=== PATIENT | male | born 1975 | race Caucasian/White ===

== ENCOUNTER → 2016-08-23 | Outpatient (CLI) | payer BC ==
--- NOTE | 2016-08-23 10:49 | Diagnostic Imaging Report ---
INDICATION: Abdominal pain. KUB 10:12 AM. Bowel gas pattern is normal. There is a 3-mm small round calcification in the left lower pelvis which is likely a phlebolith, but a distal ureteral calculus cannot be excluded. There are no calculi seen in the kidneys or proximal ureters. IMPRESSION: Small calcification in the pelvis probably phlebolith but a distal ureteral calculus cannot be excluded. Clinical correlation recommended. Dictated by: Dictated on workstation # [id number]
== END ==
LOC: RAD 09:45
PROVIDERS: ATTEND Urology
DX: R93.5 Abnormal findings on diagnostic imaging of other abdominal regions, including retroperitoneum (principal); Z87.442 Personal history of urinary calculi
CPT/HCPCS: 74000

== ENCOUNTER 2018-08-24 16:59 | Emergency (ER) | payer BC ==
[~2018-08-24] VITALS: Ht 172.7 cm; Wt 99.8 kg
[2018-08-24 17:54] LABS: BILIRUBIN,URINE NEGATIVE (NEGATIVE); CLARITY,URINE CLEAR; COLOR,URINE AMBER; GLUCOSE, URINE (UA) NEGATIVE (NEGATIVE); KETONES,URINE 1+ (NEGATIVE); LEUKOCYTE ESTERASE ,URINE 1+ (NEGATIVE); NITRITE,URINE NEGATIVE (NEGATIVE); PH,URINE 5 (5-9); PROTEIN,URINE 1+ (NEGATIVE); UROBILINOGEN,URINE 1 MG/DL (NORMAL)
[2018-08-24 18:02] LABS: BASOPHILS % (AUTO) 0 % (0-10); EOSINOPHILS # (AUTO) 0.3 10^3/uL (0.0-0.3); EOSINOPHILS % (AUTO) 3 % (0-10); HEMATOCRIT 46 % (40-54); HEMOGLOBIN 16.3 G/DL (13.3-17.7); LYMPHOCYTES # (AUTO) 2.3 X 10^3 (1.0-4.0); LYMPHOCYTES % (AUTO) 19 % (12-44); MEAN CORPUSCULAR HEMOGLOBIN 33 PG (25-34); MEAN CORPUSCULAR HGB CONC 35 G/DL (32-36); MEAN CORPUSCULAR VOLUME 92 FL (80-99); MEAN PLATELET VOLUME 9.7 FL (7.4-10.4); MONOCYTES # (AUTO) 1.2 X 10^3 (0.0-1.0); MONOCYTES % (AUTO) 10 % (0-12); NEUTROPHILS # (AUTO) 8.2 X 10^3 (1.8-7.8); NEUTROPHILS % (AUTO) 68 % (42-75); PLATELET COUNT 238 10^3/uL (130-400); RED CELL DISTRIBUTION WIDTH 12.7 % (10.0-14.5); WHITE BLOOD COUNT 12.1 10^3/uL (4.3-11.0)
[2018-08-24] MEDS ORDERED: LACTATED RINGERS 1,000 ML IV ONE (18:07)
[2018-08-24 18:10] LABS: BACTERIA,URINE NEGATIVE /HPF; SQUAMOUS EPITHELIAL CELL,UR RARE /HPF; WBC,URINE 0-2 /HPF
[2018-08-24 18:26] LABS: ALBUMIN 4.3 GM/DL (3.2-4.5); BILIRUBIN,TOTAL 0.7 MG/DL (0.1-1.0); CALCIUM 10.5 MG/DL (8.5-10.1); CREATININE SERUM 1.38 MG/DL (0.60-1.30); POTASSIUM 4.4 MMOL/L (3.6-5.0); TOTAL PROTEIN 7.7 GM/DL (6.4-8.2)
[2018-08-24 18:33] LABS: AMPHETAMINE SCREEN, URINE POSITIVE (NEGATIVE); BENZODIAZEPINES SCREEN URINE POSITIVE (NEGATIVE); COCAINE SCREEN URINE NEGATIVE (NEGATIVE); METHAMPHETAMINE SCREEN URINE S NEGATIVE (NEGATIVE)
[2018-08-24 18:34] LABS: BARBITURATE SCREEN URINE NEGATIVE (NEGATIVE); CANNABINOID SCREEN, URINE POSITIVE (NEGATIVE); METHADONE STAT NEGATIVE (NEGATIVE); OPIATE SCREEN URINE POSITIVE (NEGATIVE); OXYCODONE STAT NEGATIVE (NEGATIVE); PROPOXYPHENE STAT NEGATIVE (NEGATIVE); TRICYCLIC ANTIDEPRESSANTS SCRE NEGATIVE (NEGATIVE)
--- NOTE | 2018-08-24 18:35 | Diagnostic Imaging Report ---
INDICATION: Abdominal pain. COMPARISON: 08/23/2016. FINDINGS: Acute abdominal series demonstrates nondistended bowel gas pattern. There is a stable calcification deep within the left pelvis, likely phlebolith. There is no free air. No significant constipation is seen. The chest is normal. Osseous structures are age appropriate. IMPRESSION: Negative acute abdominal series. Dictated by: Dictated on workstation # [id number]
[2018-08-24 18:49] LABS: AMYLASE 60 U/L (25-125); LIPASE 40 U/L (8-78)
--- NOTE | 2018-08-24 18:55 | Diagnostic Imaging Report ---
PROCEDURE: CT urinary tract, rule out kidney stone. TECHNIQUE: Multiple contiguous axial images were obtained through the abdomen and pelvis without the use of intravenous contrast. Auto Exposure Controls were utilized during the CT exam to meet ALARA standards for radiation dose reduction. INDICATION: Dysuria, abdominal pain. COMPARISON: None. FINDINGS: The lung bases are clear. The gallbladder is contracted likely from a nonfasting state. There are no obvious gallstones. The liver, spleen, pancreas, and adrenal glands are grossly unremarkable. There are 1-2 mm nonobstructive stones in both kidneys; however, there is no hydronephrosis or hydroureter. There is a phlebolith deep within the pelvis on the left. Distal ureters and urinary bladder are grossly unremarkable. Course and caliber of the small bowel is normal. There are acute diverticula of the mid sigmoid colon. There is some slight inflammatory change in the mesenteric fat. This could represent an early diverticulitis. There is no free air, free fluid, or abscess. The appendix is normal. There is no hernia. Osseous structures are age appropriate. IMPRESSION: 1. Nonobstructive renal calculi bilaterally. No hydronephrosis or hydroureter identified. 2. Suspect subtle focal diverticulitis of the sigmoid colon without abscess, free air, or free fluid. Follow-up recommended. Dictated by: Dictated on workstation # [id number]
[2018-08-24] MEDS ORDERED: KETOROLAC 30 MG/ML VIAL IVP STA (18:58)
--- NOTE | 2018-08-24 19:00 | ED Abdominal Pain ---
General Chief Complaint: Abdominal/GI Problems Stated Complaint: ABD PAIN Nursing Triage Note: PT AMB TO TRIAGE WITH COMPLAINT OF ABD PAIN. STATES STARTED TWO WEEKS AGO BUT WORSENED FRIDAY NIGHT. STATES HE IS HAVING DIFFICULTY URINATING. Sepsis Screen: No Definite Risk Allergies and Home Medications Allergies Coded Allergies: No Known Drug Allergies (Unverified , 08/24/18) Past Ojkiwpo-Xobaec-Vewjal Hx Patient Social History Alcohol Use: Occasionally Uses Recreational Drug Use: No Smoking Status: Never a Smoker Recent Foreign Travel: No Contact w/Someone Who Travel: No Recent Infectious Disease Expo: No Recent Hopitalizations: No Immunizations Up To Date Tetanus Booster (TDap): Unknown PED Vaccines UTD: Yes Seasonal Allergies Seasonal Allergies: No Past Medical History Surgeries: Yes Respiratory: No Cardiac: No Neurological: No Genitourinary: No Gastrointestinal: No Musculoskeletal: Yes (CHRONIC INJURIES) Endocrine: No HEENT: No Cancer: No Psychosocial: No Integumentary: No Physical Exam Vital Signs Vital Signs - First Documented 08/24/18 17:08 Temp 99.5 Pulse 106 Resp 20 B/P (MAP) 145/94 (111) Pulse Ox 98 O2 Delivery Room Air Capillary Refill : Less Than 3 Seconds Height/Weight/BMI Height: 5'8.00" Weight: 220lbs. oz. 99.446572ez; BMI Method:Stated Progress/Results/Core Measures Results/Orders Lab Results Laboratory Tests Test 08/24/18 17:45 08/24/18 17:50 Range/Units Urine Color JASON H Urine Clarity CLEAR Urine pH 5 5-9 Urine Specific [place] 1.015 L 1.016-1.022 Urine Protein 1+ H NEGATIVE Urine Glucose (UA) NEGATIVE NEGATIVE Urine Ketones 1+ H NEGATIVE Urine Nitrite NEGATIVE NEGATIVE Urine Bilirubin NEGATIVE NEGATIVE Urine Urobilinogen 1 NORMAL MG/DL Urine Leukocyte Esterase 1+ H NEGATIVE Urine RBC (Auto) NEGATIVE NEGATIVE Urine RBC NONE /HPF Urine WBC 0-2 /HPF Urine Squamous Epithelial Cells RARE /HPF Urine Crystals NONE /LPF Urine Bacteria NEGATIVE /HPF Urine Casts NONE /LPF Urine Mucus SMALL H /LPF Urine Culture Indicated NO Urine Opiates Screen POSITIVE H NEGATIVE Urine Oxycodone Screen NEGATIVE NEGATIVE Urine Methadone Screen NEGATIVE NEGATIVE Urine Propoxyphene Screen NEGATIVE NEGATIVE Urine Barbiturates Screen NEGATIVE NEGATIVE Ur Tricyclic Antidepressants Screen NEGATIVE NEGATIVE Urine Phencyclidine Screen NEGATIVE NEGATIVE Urine Amphetamines Screen POSITIVE H NEGATIVE Urine Methamphetamines Screen NEGATIVE NEGATIVE Urine Benzodiazepines Screen POSITIVE H NEGATIVE Urine Cocaine Screen NEGATIVE NEGATIVE Urine Cannabinoids Screen POSITIVE H NEGATIVE White Blood Count 12.1 H 4.3-11.0 10^3/uL Red Blood Count 5.01 4.35-5.85 10^6/uL Hemoglobin 16.3 13.3-17.7 G/DL Hematocrit 46 40-54 % Mean Corpuscular Volume 92 80-99 FL Mean Corpuscular Hemoglobin 33 25-34 PG Mean Corpuscular Hemoglobin Concent 35 32-36 G/DL Red Cell Distribution Width 12.7 10.0-14.5 % Platelet Count 238 130-400 10^3/uL Mean Platelet Volume 9.7 7.4-10.4 FL Neutrophils (%) (Auto) 68 42-75 % Lymphocytes (%) (Auto) 19 12-44 % Monocytes (%) (Auto) 10 0-12 % Eosinophils (%) (Auto) 3 0-10 % Basophils (%) (Auto) 0 0-10 % Neutrophils # (Auto) 8.2 H 1.8-7.8 X 10^3 Lymphocytes # (Auto) 2.3 1.0-4.0 X 10^3 Monocytes # (Auto) 1.2 H 0.0-1.0 X 10^3 Eosinophils # (Auto) 0.3 0.0-0.3 10^3/uL Basophils # (Auto) 0.0 0.0-0.1 10^3/uL Sodium Level 138 135-145 MMOL/L Potassium Level 4.4 3.6-5.0 MMOL/L Chloride Level 101 98-107 MMOL/L Carbon Dioxide Level 29 21-32 MMOL/L Anion Gap 8 5-14 MMOL/L Blood Urea Nitrogen 11 7-18 MG/DL Creatinine 1.38 H 0.60-1.30 MG/DL Estimat Glomerular Filtration Rate 57 BUN/Creatinine Ratio 8 Glucose Level 80 70-105 MG/DL Calcium Level 10.5 H 8.5-10.1 MG/DL Corrected Calcium 10.3 H 8.5-10.1 MG/DL Total Bilirubin 0.7 0.1-1.0 MG/DL Aspartate Amino Transf (AST/SGOT) 23 5-34 U/L Alanine Aminotransferase (ALT/SGPT) 38 0-55 U/L Alkaline Phosphatase 63 40-136 U/L Total Protein 7.7 6.4-8.2 GM/DL Albumin 4.3 3.2-4.5 GM/DL Amylase Level 60 25-125 U/L Lipase 40 8-78 U/L Serum Alcohol < 10 <10 MG/DL My Orders Orders - MEGGAN BLACKWELL DO Amylase (08/24/18 18:03) Lipase (08/24/18 18:03) Ct Abd/Pelvis Wo(Kidney Stone) (08/24/18 18:07) Acute Abd Series (08/24/18 18:07) Ed Iv/Invasive Line Start (08/24/18 18:07) Lactated Ringers (Lr 1000 Ml Iv Solution (08/24/18 18:07) Alcohol (08/24/18 18:07) Drug Screen Stat (Urine) (08/24/18 18:07) Ketorolac Injection (Toradol Injection) (08/24/18 18:58) Medications Given in ED Current Medications Medications Dose Ordered Sig/Jane Route Start Time Stop Time Status Last Admin Dose Admin Lactated Ringer's 1,000 ml @ 0 mls/hr Q0M ONCE IV 08/24/18 18:07 08/24/18 18:09 DC 08/24/18 18:16 1,000 MLS/HR Vital Signs/I&O 08/24/18 17:08 Temp 99.5 Pulse 106 Resp 20 B/P (MAP) 145/94 (111) Pulse Ox 98 O2 Delivery Room Air Blood Pressure Mean: 111 Diagnostic Imaging Comments ABDOMEN XRAYS--NO ACUTE PROCESS CT ABDOMEN/PELVIS--SUBTLE MESENTERIC FAT STRANDING, SUSPECTED EARLY/MILD DIVERTICULITIS PER RADIOLOGIST REPORTS AT 1900 Reviewed: Reviewed by Me Departure Impression Primary Impression: Sigmoid diverticulitis Disposition: HOME, SELF-CARE Condition: Stable Departure-Patient Inst. Referrals: KARLI POP MD (PCP) Primary Care Physician MOHSEN BRIGGS DO Patient Instructions: Diverticulitis (DC) Add. Discharge Instructions: CLEAR LIQUIDS FOR AT LEAST 24 HOURS, UNTIL PAIN IS GONE--WATER, BROTH, JELLO, GATORADE, POPSICLES, CLEAR JUICES FOLLOW UP WITH DR. BRIGGS THIS WEEK FOR FURTHER CARE-CALL IN AM FOR APPOINTMENT RETURN TO ER IF WORSE All discharge instructions reviewed with patient and/or family. Voiced understanding. Scripts Ketorolac Tromethamine (Ketorolac Tromethamine) 10 Mg Tablet 10 MG PO Q6H for Pain, #15 TAB Prov: MEGGAN BLACKWELL DO 08/24/18 Metronidazole (Flagyl) 500 Mg Tablet 500 MG PO QID for FOR INFECTION, #40 TAB Prov: MEGGAN BLACKWELL DO 08/24/18 Ciprofloxacin HCl (Cipro) 500 Mg Tablet 500 MG PO BID, #20 TAB Prov: MEGGAN BLACKWELL DO 08/24/18 MEGGAN BLACKWELL DO Aug 24, 2018 19:00
[2018-08-24] MEDS ORDERED: CIPR-225 PO (19:10)
[2018-08-24] MEDS ORDERED: METR500T PO (19:10)
[2018-08-24] MEDS ORDERED: KETO10TA PO (19:10)
[2018-08-24 19:19] VITALS: BP 116/78
== END 2018-08-24 19:19 | disposition home or self-care (01) ==
LOC: EDUNIT# 16:59 → ER 17:00
DX: K57.32 Diverticulitis of large intestine without perforation or abscess without bleeding (principal)
CPT/HCPCS: 36415; 74022; 74176; 80053; 80306; 80320; 81000; 82150; 83690; 85025; 96361; 96374

== ENCOUNTER → 2018-10-26 | Outpatient (CLI) | payer BC ==
[~2018-10-26] MED LIST: CIPR-225 PO; KETO10TA PO; METR500T PO
== END | disposition home or self-care (01) ==
LOC: PREOP 06:16
PROVIDERS: ATTEND Surgery
DX: Z01.818 Encounter for other preprocedural examination (principal)

== ENCOUNTER 2019-03-12 05:39 | Outpatient (CLI) | payer BC ==
[~2019-03-12] VITALS: Ht 172.7 cm; Wt 96.2 kg
[2019-03-12] MEDS ORDERED: ZOLP10TA5 PO (10:09)
[2019-03-12] MEDS ORDERED: CELE200C PO (10:09)
[2019-03-12] MEDS ORDERED: TEST200V21 IM (10:09)
[2019-03-12] MEDS ORDERED: TIZA4TAB4 PO (10:09)
[2019-03-12] MEDS ORDERED: HYDR-3820 PO (10:09)
== END 2019-03-12 10:10 | disposition home or self-care (01) ==
LOC: PREOP 05:39
PROVIDERS: ATTEND Surgery
DX: Z01.818 Encounter for other preprocedural examination (principal)

== ENCOUNTER 2020-10-21 13:43 | Emergency (ER) | payer BC ==
[~2020-10-21] VITALS: Ht 170 cm; Wt 89.3 kg
[~2020-10-21 13:43] MED LIST changes: +ACHYD1T PO; +CELE200C PO; +TEST200V21 IM; +TIZA4TAB4 PO; +ZOLP10TA5 PO
--- NOTE | 2020-10-21 14:07 | ED Upper Extremity ---
General Chief Complaint: Upper Extremity Stated Complaint: L ARM INFECTION Source: patient Exam Limitations: no limitations (JOLIE WISE APRN) History of Present Illness Date Seen by Provider: Oct 21, 2020 Time Seen by Provider: 13:43 Initial Comments This is a 45-year-old male presented to ER with complaints of left elbow swelling and tenderness. 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 He has been on multiple rounds of antibiotics with his most recent antibiotic being rifampin. States that he has been on rifampin for approximately 10 days and was doing okay until his elbow started swelling again apx 4-5 days ago. He has been treated with two rounds of Bactrim, Keflex and latest rifampin. He was told to go to the emergency department if his symptoms worsen. He has subjective chills, no fever at home. No nausea, vomiting, abdominal pain. Did not receive Covid vaccines. (JOLIE WISE APRN) Allergies and Home Medications Allergies Coded Allergies: Penicillins (Verified Allergy, Unknown, 03/12/19) Patient Home Medication List Home Medication List Reviewed: Yes (JOLIE WISE APRN) Celecoxib (Celebrex) 200 Mg Capsule, 200 MG PO DAILY, (Reported) Entered as Reported by: JULIO SÁNCHEZ on 03/12/19 100 Hydrocodone Bit/Acetaminophen (HYDROcodone/APAP 10/325 TABLET) 1 Each Tablet, 1 TAB PO Q6H PRN for PAIN-MODERATE (5-7), (Reported) Entered as Reported by: JULIO SÁNCHEZ on 03/12/19 1009 Testosterone Cypionate (Testosterone Cypionate) 200 Mg/1 Ml Vial, 200 MG IM WEEK, (Reported) Entered as Reported by: JULIO SÁNCHEZ on 03/12/19 1009 Tizanidine HCl (Tizanidine HCl) 4 Mg Tablet, 4 MG PO TID PRN for MUSCLE SPASMS, (Reported) Entered as Reported by: JULIO SÁNCHEZ on 03/12/19 1009 Zolpidem Tartrate (Zolpidem Tartrate) 10 Mg Tablet, 10 MG PO HS, (Reported) Entered as Reported by: JULIO SÁNCHEZ on 03/12/19 1009 Review of Systems Constitutional: chills; No fever; malaise EENTM: no symptoms reported Respiratory: no symptoms reported Cardiovascular: no symptoms reported Gastrointestinal: no symptoms reported Genitourinary: no symptoms reported Musculoskeletal: see HPI Skin: see HPI Psychiatric/Neurological: No Symptoms Reported (JOLIE WISE APRN) Past Njfhpwe-Pfcevk-Easqoi Hx Immunizations Up To Date Tetanus Booster (TDap): Unknown PED Vaccines UTD: Yes (JOLIE WISE APRN) Seasonal Allergies Seasonal Allergies: No (JOLIE WISE APRN) Past Medical History Surgeries: Yes (OPEN LEFT KNEE SURGERYx3, shoulder sx) Orthopedic Respiratory: No Cardiac: No Neurological: No Genitourinary: Yes Kidney Stones Gastrointestinal: Yes Gastroesophageal Reflux, Diverticulosis Musculoskeletal: Yes Arthritis Endocrine: No HEENT: No Cancer: No Psychosocial: No Integumentary: No Blood Disorders: No (JOLIE WISE APRN) Physical Exam Vital Signs Vital Signs - First Documented 10/21/20 13:58 Temp 36.0 Pulse 92 Resp 18 B/P (MAP) 150/95 (113) Pulse Ox 98 O2 Delivery Room Air (ROSALVA,MEGGAN K DO) Vital Signs Capillary Refill : (JOLIE WISE APRN) Height, Weight, BMI Height: 5'8.00" Weight: 220lbs. oz. 99.444221og; 32.25 BMI Method:Stated General Appearance: WD/WN, no apparent distress HEENT: PERRL/EOMI, normal ENT inspection Neck: full range of motion, normal inspection Cardiovascular: regular rate, rhythm, no murmur Respiratory: lungs clear, normal breath sounds, no respiratory distress Gastrointestinal: normal bowel sounds, non tender, soft Back: normal inspection Shoulder: normal inspection, non-tender, no evidence of injury Elbow/Forearm: Left, pain, soft tissue tenderness, swelling (warmth) Wrist: Yes normal inspection, Yes no evidence of injury Hand: normal inspection, no evidence of injury Neurologic/Tendon: normal sensation, normal motor functions, normal tendon functions Neurologic/Psychiatric: no motor/sensory deficits, alert, normal mood/affect, oriented x 3 Skin: normal color, warm/dry (JOLIE WISE APRN) Progress/Results/Core Measures Results/Orders Lab Results Laboratory Tests Test 10/21/20 14:22 Range/Units White Blood Count 8.8 4.3-11.0 10^3/uL Red Blood Count 5.40 4.30-5.52 10^6/uL Hemoglobin 17.1 13.3-17.7 g/dL Hematocrit 49 40-54 % Mean Corpuscular Volume 91 80-99 fL Mean Corpuscular Hemoglobin 32 25-34 pg Mean Corpuscular Hemoglobin Concent 35 32-36 g/dL Red Cell Distribution Width 12.6 10.0-14.5 % Platelet Count 208 130-400 10^3/uL Mean Platelet Volume 9.5 9.0-12.2 fL Immature Granulocyte % (Auto) 0 % Neutrophils (%) (Auto) 65 42-75 % Lymphocytes (%) (Auto) 23 12-44 % Monocytes (%) (Auto) 8 0-12 % Eosinophils (%) (Auto) 3 0-10 % Basophils (%) (Auto) 1 0-10 % Neutrophils # (Auto) 5.6 1.8-7.8 10^3/uL Lymphocytes # (Auto) 2.0 1.0-4.0 10^3/uL Monocytes # (Auto) 0.7 0.0-1.0 10^3/uL Eosinophils # (Auto) 0.3 0.0-0.3 10^3/uL Basophils # (Auto) 0.0 0.0-0.1 10^3/uL Immature Granulocyte # (Auto) 0.0 0.0-0.1 10^3/uL Erythrocyte Sedimentation Rate 1 0-15 MM/HR Prothrombin Time 13.2 12.2-14.7 SEC INR Comment 1.0 0.8-1.4 Activated Partial Thromboplast Time 36 H 24-35 SEC Urine Color ORANGE Urine Clarity CLEAR Urine pH 7.0 5-9 Urine Specific [place] 1.020 1.016-1.022 Urine Protein NEGATIVE NEGATIVE Urine Glucose (UA) NEGATIVE NEGATIVE Urine Ketones NEGATIVE NEGATIVE Urine Nitrite NEGATIVE NEGATIVE Urine Bilirubin NEGATIVE NEGATIVE Urine Urobilinogen 1.0 < = 1.0 MG/DL Urine Leukocyte Esterase NEGATIVE NEGATIVE Urine RBC (Auto) NEGATIVE NEGATIVE Urine RBC NONE /HPF Urine WBC NONE /HPF Urine Squamous Epithelial Cells 0-2 /HPF Urine Crystals NONE /LPF Urine Bacteria NEGATIVE /HPF Urine Casts NONE /LPF Urine Mucus SMALL H /LPF Urine Culture Indicated CULTURE PENDING Sodium Level 139 135-145 MMOL/L Potassium Level 4.5 3.6-5.0 MMOL/L Chloride Level 104 98-107 MMOL/L Carbon Dioxide Level 22 21-32 MMOL/L Anion Gap 13 5-14 MMOL/L Blood Urea Nitrogen 14 7-18 MG/DL Creatinine 1.17 0.60-1.30 MG/DL Estimat Glomerular Filtration Rate 68 BUN/Creatinine Ratio 12 Glucose Level 96 70-105 MG/DL Lactic Acid Level 1.19 0.50-2.00 MMOL/L Calcium Level 9.2 8.5-10.1 MG/DL Corrected Calcium 9.0 8.5-10.1 MG/DL Total Bilirubin 1.0 0.1-1.0 MG/DL Aspartate Amino Transf (AST/SGOT) 23 5-34 U/L Alanine Aminotransferase (ALT/SGPT) 25 0-55 U/L Alkaline Phosphatase 51 40-136 U/L C-Reactive Protein High Sensitivity 0.10 0.00-0.50 MG/DL Total Protein 7.4 6.4-8.2 GM/DL Albumin 4.2 3.2-4.5 GM/DL Procalcitonin 0.01 <0.10 NG/ML SARS-CoV-2 RNA (RT-PCR) Not Detected Not Detecte (RICARDO BLACKWELLA Den DO) Vital Signs/I&O 10/21/20 10/21/20 13:58 16:00 Temp 36.0 Pulse 92 74 Resp 18 14 B/P (MAP) 150/95 (113) 128/84 Pulse Ox 98 99 O2 Delivery Room Air Room Air (ROSALVAMEGGAN Den DO) Progress Progress Note : Progress Note Patient examined and in no acute distress. He does have moderate moderate swelling or redness to his left elbow around the open wound area. Concern for septic arthritis due to persistent swelling and redness despite multiple antimicrobials. Initiated septic work-up. Labs reviewed and are unremarkable. Discussed case with Dr. Jeong recommended consulting with Ortho due to persistent swelling. Consulted with Dr. Floyd at [facility], recommended patient to follow-up outpatient as he is not septic at this time for incision and drainage of area as this likely represents a septic bursitis. Discharge plan of care reviewed with patient and he is agreeable with plan. (JOLIE WISE APRN) Diagnostic Imaging Diagonstic Imaging: Xray Plain Films/CT/US/NM/MRI: elbow Comments [facility], [facility]. [place], [place] NAME: MILA ATKINS [facility] REC#: [id number] PT STATUS: REG ER : 1975 PHYSICIAN: JOLIE WISE APRN ADMIT DATE: 10/21/20/ER Signed Date of Exam:10/21/20 ELBOW, LEFT, 3 VIEWS INDICATION: Pain and swelling. 3 views were obtained. FINDINGS: The alignment is normal. No fracture or dislocation. No joint effusion. IMPRESSION: No acute fracture or dislocation. Dictated by: Dictated on workstation # [id number] Dict: 10/21/20 1439 Trans: 10/21/20 154 CVB [id number] Interpreted by: REJI VILLANUEVA MD Electronically signed by: REJI VILLANUEVA MD 10/21/201541 Reviewed: Reviewed by Me Diagonstic Imaging: Xray Plain Films/CT/US/NM/MRI: chest Comments [facility], [facility]. [place], [place] NAME: MILA ATKINS [facility] REC#: [id number] PT STATUS: REG ER : 1975 PHYSICIAN: JOLIE WISE APRN ADMIT DATE: 10/21/20/ER Signed Date of Exam:10/21/20 CHEST 1 VIEW, AP/PA ONLY INDICATION: Sepsis. FINDINGS: The heart size, mediastinal configuration, and pulmonary vascularity are within normal limits. There is no pleural effusion, pneumothorax, or pneumonia. The osseous structures are unremarkable. IMPRESSION: No acute cardiopulmonary abnormality. Dictated by: Dictated on workstation # [id number] Dict: 10/21/20 143 Trans: 10/21/20 154 CVB [id number] Interpreted by: REJI VILLANUEVA MD Electronically signed by: REJI VILLANUEVA MD 10/21/201541 Reviewed: Reviewed by Me (JOLIE WISE APRN) Departure Impression Primary Impression: Elbow swelling Disposition: 01 HOME, SELF-CARE Condition: Stable Departure-Patient Inst. Decision time for Depature: 15:19 (JOLIE WISE APRN) Referrals: MAIKOL BARRAZA MD,ELVA GLYNN,FRANCINE Gardner MD Patient Instructions: Septic Arthritis Add. Discharge Instructions: Plan: 1. Call ortho provider of your choice and call on Friday to schedule appointment to have your elbow incised and drained. 2. May take Tylenol or Ibuprofen as needed for pain. 3. Return to ER for any new, concerning, or worsening symptoms. All discharge instructions reviewed with patient and/or family. Voiced u nderstanding. ATTENDING PHYSICIAN NOTE: I WAS PHYSICALLY PRESENT ER PHYSICIAN WHILE PT WAS IN THE ER, BUT WAS NOT INVOLVED IN DECISION MAKING OR WITH CARE OF THIS PATIENT. (MEGGAN BLACKWELL DO) Copy Copies To 1: GOPI MORALES MD, STORMY D [employer]SE[employer] Oct 21, 2020 14:07 MEGGAN BLACKWELL DO Oct 21, 2020 17:57
[2020-10-21 14:36] LABS: BASOPHILS % (AUTO) 1 % (0-10); EOSINOPHILS # (AUTO) 0.3 10^3/uL (0.0-0.3); EOSINOPHILS % (AUTO) 3 % (0-10); HEMATOCRIT 49 % (40-54); HEMOGLOBIN 17.1 g/dL (13.3-17.7); LYMPHOCYTES % (AUTO) 23 % (12-44); MEAN CORPUSCULAR HEMOGLOBIN 32 pg (25-34); MEAN CORPUSCULAR HGB CONC 35 g/dL (32-36); MEAN CORPUSCULAR VOLUME 91 fL (80-99); MEAN PLATELET VOLUME 9.5 fL (9.0-12.2); MONOCYTES # (AUTO) 0.7 10^3/uL (0.0-1.0); MONOCYTES % (AUTO) 8 % (0-12); NEUTROPHILS # (AUTO) 5.6 10^3/uL (1.8-7.8); NEUTROPHILS % (AUTO) 65 % (42-75); PLATELET COUNT 208 10^3/uL (130-400); WHITE BLOOD COUNT 8.8 10^3/uL (4.3-11.0)
--- NOTE | 2020-10-21 14:42 | Diagnostic Imaging Report ---
INDICATION: Sepsis. FINDINGS: The heart size, mediastinal configuration, and pulmonary vascularity are within normal limits. There is no pleural effusion, pneumothorax, or pneumonia. The osseous structures are unremarkable. IMPRESSION: No acute cardiopulmonary abnormality. Dictated by: Dictated on workstation # [id number]
--- NOTE | 2020-10-21 14:42 | Diagnostic Imaging Report ---
INDICATION: Pain and swelling. 3 views were obtained. FINDINGS: The alignment is normal. No fracture or dislocation. No joint effusion. IMPRESSION: No acute fracture or dislocation. Dictated by: Dictated on workstation # [id number]
[2020-10-21 14:44] LABS: BILIRUBIN,URINE NEGATIVE (NEGATIVE); CLARITY,URINE CLEAR; COLOR,URINE ORANGE; GLUCOSE, URINE (UA) NEGATIVE (NEGATIVE); KETONES,URINE NEGATIVE (NEGATIVE); LEUKOCYTE ESTERASE ,URINE NEGATIVE (NEGATIVE); NITRITE,URINE NEGATIVE (NEGATIVE); PROTEIN,URINE NEGATIVE (NEGATIVE)
[2020-10-21 14:46] LABS: ALBUMIN 4.2 GM/DL (3.2-4.5); POTASSIUM 4.5 MMOL/L (3.6-5.0); PROTHROMBIN TIME PATIENT 13.2 SEC (12.2-14.7)
[2020-10-21 14:47] LABS: CALCIUM 9.2 MG/DL (8.5-10.1)
[2020-10-21 14:49] LABS: TOTAL PROTEIN 7.4 GM/DL (6.4-8.2)
[2020-10-21 14:52] LABS: CREATININE SERUM 1.17 MG/DL (0.60-1.30)
[2020-10-21 14:56] LABS: BACTERIA,URINE NEGATIVE /HPF; SQUAMOUS EPITHELIAL CELL,UR 0-2 /HPF
[2020-10-21 14:58] LABS: ERYTHROCYTE SEDIMENTATION RATE 1 MM/HR (0-15)
[2020-10-21 16:00] VITALS: BP 128/84
== END 2020-10-21 16:04 | disposition home or self-care (01) ==
LOC: EDUNIT# 13:43 → ER 13:46
DX: M79.89 Other specified soft tissue disorders (principal); Z86.16 Personal history of COVID-19; Z20.822 Contact with and (suspected) exposure to COVID-19
CPT/HCPCS: 36415; 71045; 73080; 80053; 81000; 83605; 84145; 85025; 85610; 85652; 85730; 86141; 87040; 87088; 87491; 87591; 87636

== ENCOUNTER 2020-10-26 10:42 | Outpatient (CLI) | payer BC ==
[~2020-10-26] VITALS: Ht 170.2 cm; Wt 87.4 kg
[~2020-10-26 10:42] MED LIST changes: -HYDR-700 PO; -PANT40TA52 PO; -PROM25TA14 PO; -TEMA15CA PO
[2020-10-26] MEDS ORDERED: PROM25TA14 PO (16:11)
[2020-10-26] MEDS ORDERED: TEMA15CA PO (16:11)
[2020-10-26] MEDS ORDERED: PANT40TA52 PO (16:11)
[2020-10-26] MEDS ORDERED: HYDR-700 PO (16:11)
== END 2020-10-26 16:18 | disposition home or self-care (01) ==
LOC: PREOP 10:42
PROVIDERS: ATTEND Orthopaedic Surgery
DX: Z01.818 Encounter for other preprocedural examination (principal)

== ENCOUNTER → 2020-10-26 | Outpatient (CLI) | payer BC ==
[~2020-10-26] MED LIST changes: +HYDR-700 PO; +PANT40TA52 PO; +PROM25TA14 PO; +TEMA15CA PO
== END ==
LOC: ORTHO 09:04
PROVIDERS: ATTEND Orthopaedic Surgery
DX: M71.122 Other infective bursitis, left elbow (principal)
CPT/HCPCS: 99203

== ENCOUNTER 2020-10-30 06:04 | Day surgery (SDC) | payer BC ==
[~2020-10-30] VITALS: Ht 170 cm; Wt 87.4 kg
[2020-10-30] VITALS (9 sets, daily range): BP systolic 106–147; BP diastolic 52–90
[~2020-10-30 06:04] MED LIST changes: +HYDR-700 PO; +PANT40TA52 PO; +PROM25TA14 PO; +TEMA15CA PO
[2020-10-30] MEDS ORDERED: LACTATED RINGERS 1,000 ML IV PRN (06:15)
[2020-10-30] MEDS ORDERED: LIDOCAINE PF 2% 5 ML (XYLOCAINE) VIAL ONE (06:47)
[2020-10-30] MEDS ORDERED: SEVOFLURANE (ULTANE) 15 ML INHAL SOLN ONE ×2 (06:47→07:55)
[2020-10-30] MEDS ORDERED: MIDAZOLAM 2 MG/2 ML (VERSED) VIAL ONE (06:47)
[2020-10-30] MEDS ORDERED: fentaNYL INJ 100 MCG/2 ML AMP ONE (06:47)
[2020-10-30] MEDS ORDERED: ONDANSETRON 4 MG/2 ML (SDV) Z0FRAN ONE (06:47)
[2020-10-30] MEDS ORDERED: proPOfol 200 MG/20 ML (DIPRIVAN) VIAL IV ONE ×2 (06:47→07:40)
[2020-10-30] MEDS ORDERED: LIDOCAINE/EPI 1%-1:100,000 (XYLOCAINE) 20ML ONE (07:12)
[2020-10-30] MEDS ORDERED: KETOROLAC 30 MG/ML VIAL ONE (07:58)
[2020-10-30] MEDS ORDERED: ONDANSETRON 4 MG/2 ML (SDV) Z0FRAN IVP PRN (08:15)
[2020-10-30] MEDS ORDERED: HYDROmorphone 2 MG/ML VIAL (DILAUDID) IV ONE (08:15)
--- NOTE | 2020-10-30 08:22 | Operative Report - Ortho ---
Operative Report Surgeon (s)/Body Maker Machine Setter (s) Surgeon MAIKOL BARRAZA MD Body Maker Machine Setter n/a Pre-Operative Diagnosis left olecranon infected bursa Post-Operative Diagnosis same Operative Report Date of Procedure: Oct 30, 2020 Name of Procedure Performed: Incision and drainge of left olecranon bursa Description & Findings After obtaining informed consent and marking the patient in the preoperative holding area, the patient was taken to the operating room. General anesthesia was induced. Surgical timeout was taken. The left upper extremity was prepped and draped in the usual sterile fashion. An incision lateral to the olecranon and centered over the bursa was made. Sharp dissection was carried to the bursa and the bursa was entered. There was immediate return of straw-colored fluid and loose bodies. Culture swab was obtained and sent for culture. The bursa was opened fully. Rongeur was used to removed inflamed bursal tissue and remaining loose bodies. Pulsatile lavage was utilized to deliver 6 liters of normal saline to the bursa. After irrigation, the wound was explored and demonstated no further inflamed tissue or loose bodies. The edges of the wound were injected with local anesthetic. The subcutaneous layer was closed with 3-0 vicryl and the skin was closed with 3-0 nylon. The wound was dressed with xeroform, 4x4s, ABD, kerlix, and FANY wrap. The patient tolerated the procedure well and was stable to the recovery room. Anesthesia Type General Estimated Blood Loss minimal Specimen(s) collected/removed Culture swab sent for gram stain, aerobic culture, and anaerobic culture. MAIKOL BARRAZA MD Oct 30, 2020 08:22
[2020-10-30] MEDS ORDERED: TEMAZEPAM 15 MG (RESTORIL) CAP PO PRN (09:15)
[2020-10-30] MEDS ORDERED: NON-FORMULARY MEDICATION 1 EA EA (Hydroxyzine HCl 25 MG) PO PRN (09:15)
[2020-10-30] MEDS ORDERED: PROMETHAZINE 25 MG (PHENERGAN) TAB PO PRN (09:15)
[2020-10-30] MEDS ORDERED: NON-FORMULARY MEDICATION 1 EA EA (Celecoxib (Celebrex) 200 MG) PO SCH (21:00)
[2020-10-31] MEDS ORDERED: PANTOPRAZOLE 40 MG (PROTONIX) TAB PO SCH (09:00)
--- NOTE | 2020-10-31 11:49 | Anesthesia-General Post-Op ---
General Patient Condition Mental Status/LOC: Same as Preop Cardiovascular: Satisfactory Nausea/Vomiting: Absent Respiratory: Satisfactory Pain: Controlled Complications: Absent Post Op Complications Complications None Follow Up Care/Instructions Patient Instructions None needed. Anesthesia/Patient Condition Patient Condition Patient is doing well, no complaints, stable vital signs, no apparent adverse anesthesia problems. No complications reported per nursing. D/C home per [facility] Criteria: Yes TATIANA MARAVILLA CRNA Oct 31, 2020 11:49
== END 2020-10-30 09:40 | disposition home or self-care (01) ==
LOC: SDC 06:04
PROVIDERS: ATTEND Orthopaedic Surgery
DX: M71.122 Other infective bursitis, left elbow (principal); K21.9 Gastro-esophageal reflux disease without esophagitis; E66.9 Obesity, unspecified; Z68.30 Body mass index [BMI] 30.0-30.9, adult; Z79.2 Long term (current) use of antibiotics; Z79.891 Long term (current) use of opiate analgesic; Z79.899 Other long term (current) drug therapy; Z87.828 Personal history of other (healed) physical injury and trauma
CPT/HCPCS: 87070; 87075; 87081; 87205

== ENCOUNTER → 2020-11-14 | Outpatient (CLI) | payer BC | LOC: ORTHO 09:25 | PROVIDERS: ATTEND Orthopaedic Surgery | DX: Z48.89 Encounter for other specified surgical aftercare (principal); I10 Essential (primary) hypertension; E66.9 Obesity, unspecified ==

== ENCOUNTER 2021-02-23 01:18 | Inpatient (IN) | payer BC ==
[~2021-02-23] VITALS: Ht 170 cm; Wt 92.0 kg
[~2021-02-23 01:18] MED LIST changes: +TIZA-186 PO; -TIZA4TAB4 PO
--- NOTE | 2021-02-23 01:59 | ED Integumentary General ---
General Chief Complaint: Skin/Wound Problems Stated Complaint: RECTAL PAIN Source: patient History of Present Illness Date Seen by Provider: Feb 23, 2021 Time Seen by Provider: 01:49 Initial Comments PT ARRIVES VIA POV FROM HOME C/O SEVERE RECTAL PAIN FOR THE LAST 2-3 DAYS PT IS UNABLE TO SIT OR LAY ON BACK DUE TO PAIN PT HAS NOT BEEN ABLE TO HAVE A BM SINCE YESTERDAY MORNING DUE TO PAIN AND UNABLE TO PASS STOOL NO BLEEDING NO FEVER TOOK HYDROCODONE WITHOUT RELIEF HAS NOT SOUGHT CARE UNTIL TONIGHT HAS HAD MRSA ABSCESS ON ARMS AND ON BUTTOCKS, BUT NOT IN PERIRECTAL AREA PT IS NOT DIABETIC PCP:DR. MORALES Allergies and Home Medications Allergies Coded Allergies: Penicillins (Verified Allergy, Unknown, 03/12/19) Patient Home Medication List Home Medication List Reviewed: Yes Celecoxib (Celebrex) 200 Mg Capsule, 200 MG PO BID, (Reported) Entered as Reported by: JULIO SÁNCHEZ on 03/12/19 1009 Hydrocodone Bit/Acetaminophen (HYDROcodone/APAP 10/325 TABLET) 1 Each Tablet, 1 TAB PO Q6H PRN for PAIN-MODERATE (5-7), (Reported) Entered as Reported by: JULIO SÁNCHEZ on 03/12/19 1009 Hydroxyzine HCl (Hydroxyzine HCl) 25 Mg Tablet, 25 MG PO DAILY PRN for ITCHING, (Reported) Entered as Reported by: JULIO SÁNCHEZ on 10/26/20 1611 Pantoprazole Sodium (Pantoprazole Sodium) 40 Mg Tablet.dr, 40 MG PO DAILY, (Reported) Entered as Reported by: JULIO SÁNCHEZ on 10/26/20 1611 Promethazine HCl (Promethazine Tablet) 25 Mg Tablet, 25 MG PO Q6H PRN for NAUSEA/VOMITING, (Reported) Entered as Reported by: JULIO SÁNCHEZ on 10/26/20 1611 Temazepam (Temazepam) 15 Mg Capsule, 15 MG PO HS PRN for INSOMNIA, (Reported) Entered as Reported by: JULIO SÁNCHEZ on 10/26/20 1611 Tizanidine HCl (Tizanidine HCl) 4 Mg Tablet, 4 MG PO TID PRN for MUSCLE SPASMS, (Reported) Entered as Reported by: JULIO SÁNCHEZ on 03/12/19 1009 Review of Systems Review of Systems Constitutional: see HPI Gastrointestinal: see HPI Genitourinary: no symptoms reported Skin: see HPI Past Mjrzhnb-Uistxs-Jldhuz Hx Patient Social History Tobacco Use?: No Substance use?: No Alcohol Use?: Yes Alcohol Frequency: Once in a while Immunizations Up To Date Tetanus Booster (TDap): Unknown PED Vaccines UTD: Yes Seasonal Allergies Seasonal Allergies: No Past Medical History Surgery/Hospitalization HX: knee surgery, neck surgery, right shoulder, left leg, History of MRSA Surgeries: Yes (OPEN LEFT KNEE SURGERYx3, shoulder sx, neck sx) Orthopedic, Tonsillectomy Respiratory: No Cardiac: No Neurological: No Genitourinary: Yes Kidney Stones Gastrointestinal: Yes Gastroesophageal Reflux, Diverticulosis, Irritable Bowel Musculoskeletal: Yes (CHRONIC NECK AND BACK PAIN AND KNEE PAIN ;MULTIPLE ORTHO SURGERIES) Degenerate Disk Disease, Arthritis, Chronic Back Pain Endocrine: No HEENT: No Cancer: No Psychosocial: No Integumentary: Yes (HX MRSA, LEFT ELBOW INFECTED OLECRANON BURSA) Blood Disorders: No Physical Exam Vital Signs Vital Signs - First Documented 02/23/21 01:45 Temp 36.6 Pulse 107 Resp 18 B/P (MAP) 166/97 (120) Pulse Ox 98 O2 Delivery Room Air Capillary Refill : General Appearance: WD/WN Cardiovascular: regular rate, rhythm Respiratory: normal breath sounds Gastrointestinal: non tender Extremities: normal inspection Neurologic/Psychiatric: no motor/sensory deficits, alert Skin: normal color, warm/dry, other (LARGE PERIRECTAL ABSCESS ON RIGHT, BUT DOES CROSS THE MIDLINE AND BOTH BUTTOCKS WITH MILD ERYTHEMA AND WARMTH. ANUS IS ESSENTIALLY SWOLLEN SHUT. ) Progress/Results/Core Measures Results/Orders Lab Results Laboratory Tests Test 02/23/21 02:10 02/23/21 02:20 Range/Units Urine Color YELLOW Urine Clarity CLEAR Urine pH 6.5 5-9 Urine Specific [place] 1.020 1.016-1.022 Urine Protein NEGATIVE NEGATIVE Urine Glucose (UA) NEGATIVE NEGATIVE Urine Ketones NEGATIVE NEGATIVE Urine Nitrite NEGATIVE NEGATIVE Urine Bilirubin NEGATIVE NEGATIVE Urine Urobilinogen 0.2 < = 1.0 MG/DL Urine Leukocyte Esterase NEGATIVE NEGATIVE Urine RBC (Auto) NEGATIVE NEGATIVE Urine RBC 0-2 /HPF Urine WBC 0-2 /HPF Urine Crystals NONE /LPF Urine Bacteria TRACE /HPF Urine Casts NONE /LPF Urine Mucus SMALL H /LPF Urine Culture Indicated NO Urine Opiates Screen POSITIVE H NEGATIVE Urine Oxycodone Screen NEGATIVE NEGATIVE Urine Methadone Screen NEGATIVE NEGATIVE Urine Propoxyphene Screen NEGATIVE NEGATIVE Urine Barbiturates Screen NEGATIVE NEGATIVE Ur Tricyclic Antidepressants Screen NEGATIVE NEGATIVE Urine Phencyclidine Screen NEGATIVE NEGATIVE Urine Amphetamines Screen NEGATIVE NEGATIVE Urine Methamphetamines Screen NEGATIVE NEGATIVE Urine Benzodiazepines Screen NEGATIVE NEGATIVE Urine Cocaine Screen NEGATIVE NEGATIVE Urine Cannabinoids Screen POSITIVE H NEGATIVE White Blood Count 16.0 H 4.3-11.0 10^3/uL Red Blood Count 4.82 4.30-5.52 10^6/uL Hemoglobin 15.3 13.3-17.7 g/dL Hematocrit 43 40-54 % Mean Corpuscular Volume 89 80-99 fL Mean Corpuscular Hemoglobin 32 25-34 pg Mean Corpuscular Hemoglobin Concent 36 32-36 g/dL Red Cell Distribution Width 11.9 10.0-14.5 % Platelet Count 244 130-400 10^3/uL Mean Platelet Volume 9.9 9.0-12.2 fL Immature Granulocyte % (Auto) 0 % Neutrophils (%) (Auto) 73 42-75 % Lymphocytes (%) (Auto) 14 12-44 % Monocytes (%) (Auto) 10 0-12 % Eosinophils (%) (Auto) 3 0-10 % Basophils (%) (Auto) 0 0-10 % Neutrophils # (Auto) 11.6 H 1.8-7.8 10^3/uL Lymphocytes # (Auto) 2.2 1.0-4.0 10^3/uL Monocytes # (Auto) 1.6 H 0.0-1.0 10^3/uL Eosinophils # (Auto) 0.4 H 0.0-0.3 10^3/uL Basophils # (Auto) 0.1 0.0-0.1 10^3/uL Immature Granulocyte # (Auto) 0.1 0.0-0.1 10^3/uL Neutrophils % (Manual) 74 % Lymphocytes % (Manual) 14 % Monocytes % (Manual) 8 % Eosinophils % (Manual) 1 % Band Neutrophils 3 % Prothrombin Time 13.9 12.2-14.7 SEC INR Comment 1.0 0.8-1.4 Activated Partial Thromboplast Time 41 H 24-35 SEC Sodium Level 133 L 135-145 MMOL/L Potassium Level 4.0 3.6-5.0 MMOL/L Chloride Level 96 L 98-107 MMOL/L Carbon Dioxide Level 25 21-32 MMOL/L Anion Gap 12 5-14 MMOL/L Blood Urea Nitrogen 15 7-18 MG/DL Creatinine 1.29 0.60-1.30 MG/DL Estimat Glomerular Filtration Rate 71 BUN/Creatinine Ratio 12 Glucose Level 108 H 70-105 MG/DL Lactic Acid Level 0.90 0.50-2.00 MMOL/L Calcium Level 9.5 8.5-10.1 MG/DL Corrected Calcium 8.5-10.1 MG/DL Total Bilirubin 0.5 0.1-1.0 MG/DL Aspartate Amino Transf (AST/SGOT) 18 5-34 U/L Alanine Aminotransferase (ALT/SGPT) 26 0-55 U/L Alkaline Phosphatase 70 40-136 U/L Total Protein 8.1 6.4-8.2 GM/DL Albumin 4.6 H 3.2-4.5 GM/DL My Orders Orders - MEGGAN BLACKWELL DO Cbc With Automated Diff (02/23/21 01:59) Comprehensive Metabolic Panel (02/23/21 01:59) Blood Culture (02/23/21 01:59) Sputum Culture (02/23/21 01:59) Urinalysis (02/23/21 01:59) Urine Culture (02/23/21 01:59) Protime With Inr (02/23/21 01:59) Partial Thromboplastin Time (02/23/21 01:59) Ed Iv/Invasive Line Start (02/23/21 01:59) Ed Iv/Invasive Line Start (02/23/21 01:59) Vital Signs Adult Sepsis Patie Q15M (02/23/21 01:59) O2 (02/23/21 01:59) Remove Rings In Anticipation O (02/23/21 01:59) Lactic Acid Analyzer (02/23/21 01:59) Metronidazole 500mg/100ml Ivpb (Flagyl 5 (02/23/21 02:00) Cefepime Injection (Maxipime Injection) (02/23/21 02:00) Vancomycin Injection (Vancomycin Injecti (02/23/21 02:00) Ketorolac Injection (Toradol Injection) (02/23/21 02:00) Ct Pelvis W (02/23/21 01:59) Ed Iv/Invasive Line Start (02/23/21 02:01) Lactated Ringers (Lr 1000 Ml Iv Solution (02/23/21 02:15) Manual Differential (02/23/21 02:20) Iohexol Injection (Omnipaque 350 Mg/Ml 1 (02/23/21 03:30) Received Contrast (Hold Metformin- Contr (02/23/21 03:30) Sodium Chloride Flush (Catheter Flush Sy (02/23/21 03:30) Ns (Ivpb) (Sodium Chloride 0.9% Ivpb Bag (02/23/21 03:30) Drug Screen Stat (Urine) (02/23/21 03:30) Fentanyl Inj (Sublimaze Injection) (02/23/21 03:30) Covid 19 Inhouse Test (02/23/21 04:40) Influenza A And B By Pcr (02/23/21 04:40) Isolation Central Supply Req (02/23/21 04:40) Medications Given in ED Current Medications Medications Dose Ordered Sig/Jane Route Start Time Stop Time Status Last Admin Dose Admin Cefepime HCl 1000 mg/Sodium Chloride 50 ml @ 100 mls/hr ONCE ONCE IV 02/23/21 02:00 02/23/21 02:29 DC 02/23/21 02:29 100 MLS/HR Iohexol 100 ml ONCE ONCE IV 02/23/21 03:30 02/23/21 03:31 DC 02/23/21 03:25 100 ML Ketorolac Tromethamine 30 mg ONCE ONCE IVP 02/23/21 02:00 02/23/21 02:02 DC 02/23/21 02:29 30 MG Lactated Ringer's 1,000 ml @ 0 mls/hr Q0M ONCE IV 02/23/21 02:15 02/23/21 02:16 DC 02/23/21 02:28 0 MLS/HR Metronidazole 100 ml @ 100 mls/hr ONCE ONCE IV 02/23/21 02:00 02/23/21 02:59 DC 02/23/21 02:28 100 MLS/HR Sodium Chloride 10 ml NEEDED PRN IV 02/23/21 03:30 02/23/21 03:25 10 ML Sodium Chloride 100 ml ONCE ONCE IV 02/23/21 03:30 02/23/21 03:31 DC 02/23/21 03:25 80 ML Vital Signs/I&O 02/23/21 01:45 Temp 36.6 Pulse 107 Resp 18 B/P (MAP) 166/97 (120) Pulse Ox 98 O2 Delivery Room Air Progress Progress Note : Progress Note GIVEN IV FLUIDS, ANTIBIOTICS AND PAIN MEDICATIONS SEPSIS PROTOCOL INITIATED FOCUS EXAM AT 0430 HR 105 BP 140'S/70'S TEMP 36.8 LUNGS CLEAR CAP REFILL < 3 SECONDS NO DETERIORATION IN PT'S CONDITION DURING ER STAY Diagnostic Imaging Comments CT PELVIS--RIGHT PERIANAL INFRA LEVATOR ABSCESS--PER [facility] VIA FAX AT [id number] Reviewed: Reviewed by Me Departure Communication (Admissions) [id number]--SPOKE WITH DR. BOSS, ACCEPTS PT FOR ADMIT. Impression Primary Impression: Perirectal abscess Additional Impression: Sepsis Disposition: ADMITTED INPATIENT Condition: Stable Admissions Decision to Admit Reason: Admit from ER (General) Decision to Admit/Date: Feb 23, 2021 Time/Decision to Admit Time: 04:40 Departure-Patient Inst. Referrals: GOPI MORALES MD (PCP/Family) Primary Care Physician MEGGAN BLACKWELL DO Feb 23, 2021 01:59
[2021-02-23] MEDS ORDERED: metroNIDAZOLE 500MG/100ML IVPB 100 ML IV ONE (02:00)
[2021-02-23] MEDS ORDERED: KETOROLAC 30 MG/ML VIAL IVP ONE (02:00)
[2021-02-23] MEDS ORDERED: CEFEPIME INJECTION 1,000 MG in NS (IVPB) 50 ML IV ONE (02:00)
[2021-02-23] MEDS ORDERED: LACTATED RINGERS 1,000 ML IV ONE (02:15)
[2021-02-23 02:31] LABS: BILIRUBIN,URINE NEGATIVE (NEGATIVE); CLARITY,URINE CLEAR; COLOR,URINE YELLOW; GLUCOSE, URINE (UA) NEGATIVE (NEGATIVE); KETONES,URINE NEGATIVE (NEGATIVE); LEUKOCYTE ESTERASE ,URINE NEGATIVE (NEGATIVE); NITRITE,URINE NEGATIVE (NEGATIVE); PH,URINE 6.5 (5-9); PROTEIN,URINE NEGATIVE (NEGATIVE)
[2021-02-23 02:38] LABS: BASOPHILS # (AUTO) 0.1 10^3/uL (0.0-0.1); BASOPHILS % (AUTO) 0 % (0-10); EOSINOPHILS # (AUTO) 0.4 10^3/uL (0.0-0.3); EOSINOPHILS % (AUTO) 3 % (0-10); HEMATOCRIT 43 % (40-54); HEMOGLOBIN 15.3 g/dL (13.3-17.7); LYMPHOCYTES # (AUTO) 2.2 10^3/uL (1.0-4.0); LYMPHOCYTES % (AUTO) 14 % (12-44); MEAN CORPUSCULAR HEMOGLOBIN 32 pg (25-34); MEAN CORPUSCULAR HGB CONC 36 g/dL (32-36); MEAN CORPUSCULAR VOLUME 89 fL (80-99); MEAN PLATELET VOLUME 9.9 fL (9.0-12.2); MONOCYTES # (AUTO) 1.6 10^3/uL (0.0-1.0); MONOCYTES % (AUTO) 10 % (0-12); NEUTROPHILS # (AUTO) 11.6 10^3/uL (1.8-7.8); NEUTROPHILS % (AUTO) 73 % (42-75); PLATELET COUNT 244 10^3/uL (130-400)
[2021-02-23 02:49] LABS: ALBUMIN 4.6 GM/DL (3.2-4.5)
[2021-02-23 02:50] LABS: CHLORIDE 96 MMOL/L (98-107); PROTHROMBIN TIME PATIENT 13.9 SEC (12.2-14.7); SODIUM 133 MMOL/L (135-145)
[2021-02-23 02:51] LABS: CALCIUM 9.5 MG/DL (8.5-10.1)
[2021-02-23 02:52] LABS: GLUCOSE 108 MG/DL (70-105); TOTAL PROTEIN 8.1 GM/DL (6.4-8.2)
[2021-02-23 02:53] LABS: CARBON DIOXIDE 25 MMOL/L (21-32)
[2021-02-23 02:54] LABS: BILIRUBIN,TOTAL 0.5 MG/DL (0.1-1.0)
[2021-02-23 02:55] LABS: ALKALINE PHOSPHATASE 70 U/L (40-136)
[2021-02-23 02:56] LABS: CREATININE SERUM 1.29 MG/DL (0.60-1.30); GFR ESTIMATED 71
[2021-02-23 02:57] LABS: BUN/CREATININE RATIO 12
[2021-02-23 02:59] LABS: ALANINE AMINOTRANSFERASE 26 U/L (0-55)
[2021-02-23] MEDS: VANCOMYCIN INJECTION 1,000 MG in NS (IVPB) 250 ML IV SCH ×2 (03:27→04:38)
[2021-02-23] MEDS ORDERED: IOHEXOL 350 MG/ML 100 ML (OMNIPAQUE 350) VIAL IV ONE (03:30)
[2021-02-23] MEDS ORDERED: fentaNYL INJ 100 MCG/2 ML AMP IVP STA (03:30)
[2021-02-23] MEDS ORDERED: CATHETER FLUSH 10 ML SYR IV PRN (03:30)
[2021-02-23] MEDS ORDERED: HOLD METFORMIN - RECEIVED CONTRAST 20 ML VIAL IV SCH (03:30)
[2021-02-23] MEDS ORDERED: NS 100 ML (IVPB) BAG IV ONE (03:30)
[2021-02-23 03:38] LABS: BACTERIA,URINE TRACE /HPF; RBC,URINE 0-2 /HPF; WBC,URINE 0-2 /HPF
[2021-02-23 04:11] LABS: AMPHETAMINE SCREEN, URINE NEGATIVE (NEGATIVE); BARBITURATE SCREEN URINE NEGATIVE (NEGATIVE); BENZODIAZEPINES SCREEN URINE NEGATIVE (NEGATIVE); CANNABINOID SCREEN, URINE POSITIVE (NEGATIVE); COCAINE SCREEN URINE NEGATIVE (NEGATIVE); METHADONE STAT NEGATIVE (NEGATIVE); METHAMPHETAMINE SCREEN URINE S NEGATIVE (NEGATIVE); OPIATE SCREEN URINE POSITIVE (NEGATIVE); OXYCODONE STAT NEGATIVE (NEGATIVE); PROPOXYPHENE STAT NEGATIVE (NEGATIVE); TRICYCLIC ANTIDEPRESSANTS SCRE NEGATIVE (NEGATIVE)
[2021-02-23] MEDS ORDERED: morphine INJ 4 MG/ML 1 ML (VIAL/SYRINGE) IVP ONE (04:45)
[2021-02-23] MEDS ORDERED: NS IV 1000 ML 1,000 ML ONE (05:55)
[2021-02-23] MEDS ORDERED: D5 1/2 NS W/KCL 20 MEQ/L 1,000 ML IV SCH (06:15)
[2021-02-23 06:23] VITALS: BP 126/76
[2021-02-23 06:36] LABS: BAND NEUTROPHILS 3 %; EOSINOPHILS % (MANUAL) 1 %; LYMPHOCYTES % (MANUAL) 14 %; MONOCYTES % (MANUAL) 8 %; NEUTROPHILS % (MANUAL) 74 %
--- NOTE | 2021-02-23 07:01 | Diagnostic Imaging Report ---
PROCEDURE: CT pelvis with contrast. TECHNIQUE: Oral and intravenous contrast were administered with pelvic CT performed. Auto Exposure Controls were utilized during the CT exam to meet ALARA standards for radiation dose reduction. INDICATION: Right perirectal abscess. Knot in the buttock region. Painful and swollen for 2-3 days. EXAMINATION: CT pelvis with contrast 02/23/2021 FINDINGS: Within the right paracentral aspect of the perineal region there is a peripherally enhancing central fluid collection which measures 1.9 x 2.4 cm on axial imaging and 3.6 cm in craniocaudal dimension. There is adjacent fat stranding and findings are consistent with a perirectal abscess. This abuts the posterior right paracentral border of the rectum. Prominent lymph nodes within the inguinal regions bilaterally likely reactive. No free air or fluid seen within the visualized pelvis. Appendix normal. Osseous structures as visualized appear unremarkable. IMPRESSION: 1. Right paracentral perirectal abscess with adjacent fat stranding consistent with inflammatory change. Likely reactive bilateral inguinal adenopathy. Findings agree with the preliminary report. Dictated by: Dictated on workstation # [id number]
[2021-02-23 07:30] VITALS: BP 131/63
--- NOTE | 2021-02-23 07:45 | History & Physical-Surgical ---
LAUREN VUONG 02/23/21 0745: History of Present Illness History of Present Illness Reason for visit/HPI CC: Perirectal abscess HPI: Mr. Renteria is a 45 year old male with a past medical history of arthritis, diverticulosis, IBS, and nephrolithiasis who presented to the ED at around 0200 on 23 February for a lump at the base of his gluteal cleft that was becoming progressively worse. He says that 3-4 weeks ago he noticed a bit of pruritus in the area but thought it was due to his hemorrhoids. He applied hydrocortisone cream and the pruritus went away. About 1 week ago he noticed a pea sized lump at the base of his gluteal cleft but did not do anything for it at that time. 2 days ago he says the lump increased in size to a golf ball and started to become very painful. He reports the pain as a constant pain without any relief. He says the pain is worse with walking, sitting, or using the restroom. He reports he has been particularly fatigued over the last month but denies any other associated symptoms such as nausea or vomiting. He says the pain has radiated to his lower back but he thinks that could be from having to change the way he sits and walks. He says the pain does not vary with the time of day; it is constant. He rates his pain as a 7.5/10. At about 0600 this morning he says the "lump" ruptured and drained bloody fluid. He says the pressure decreased immensely and his pain was a 3.5/10 after it ruptured. The fluid was thick, malodorous, and sanguineous upon inspection. He reports having a similar sebaceous cyst removed from his left buttock about 1.5 years ago. Date of Admission Feb 23, 2021 at 04:44 Date Seen by a Provider: Feb 23, 2021 Time Seen by a Provider: 07:45 I consulted on this patient on 02/23/21 07:37 Attending Physician Estevan Boss DO Admitting Physician Donnell Amanda MD Consult Allergies and Home Medications Allergies Coded Allergies: Penicillins (Verified Allergy, Unknown, 03/12/19) Patient Home Medication List Celecoxib (Celecoxib) 200 Mg Capsule, 200 MG PO BID, (Reported) Entered as Reported by: MARIA DE JESUS DORADO on 02/23/21 1033 Last Action: Held Hydrocodone/Acetaminophen (Hydrocodone-Acetamin 10-325 mg) 1 Each Tablet, 1 EA PO Q4 -6H PRN for PAIN-MODERATE (5-7), (Reported) Entered as Reported by: MARIA DE JESUS DORADO on 02/23/21 1033 Last Action: Held Hydroxyzine HCl (Hydroxyzine HCl) 25 Mg Tablet, 25 MG PO DAILY PRN for ANXIETY, (Reported) Entered as Reported by: JULIO SÁNCHEZ on 10/26/20 161 Last Action: Held Pantoprazole Sodium (Pantoprazole Sodium) 40 Mg Tablet.dr, 40 MG PO DAILY, (Reported) Entered as Reported by: JULIO SÁNCHEZ on 10/26/201610 Last Action: Continued Promethazine HCl (Promethazine Tablet) 25 Mg Tablet, 25 MG PO Q6H PRN for NAUSEA/VOMITING-2ND LINE, (Reported) Entered as Reported by: JULIO SÁNCHEZ on 10/26/201610 Last Action: Held Tizanidine HCl (Tizanidine HCl) 4 Mg Tablet, 4-8 MG PO HS, (Reported) Entered as Reported by: JULIO SÁNCHEZ on 03/12/19 100 Last Action: Held Zolpidem Tartrate (Ambien) 10 Mg Tablet, 10 MG PO HS PRN for SLEEP, (Reported) Entered as Reported by: MARIA DE JESUS DORADO on 02/23/21 103 Last Action: Held Discontinued Medications Celecoxib (Celebrex) 200 Mg Capsule, 200 MG PO BID, (Reported) Discontinued Reason: Duplicate Order Entered as Reported by: JULIO SÁNCHEZ on 03/12/19 100 Last Action: Discontinued Hydrocodone Bit/Acetaminophen (HYDROcodone/APAP 10/325 TABLET) 1 Each Tablet, 1 TAB PO Q6H PRN for PAIN-MODERATE (5-7), (Reported) Discontinued Reason: Duplicate Order Entered as Reported by: JULIO SÁNCHEZ on 03/12/19 100 Last Action: Discontinued Temazepam (Temazepam) 15 Mg Capsule, 15 MG PO HS PRN for INSOMNIA, (Reported) Discontinued Reason: No Longer Taking Entered as Reported by: JULIO SÁNCHEZ on 10/26/201610 Last Action: Discontinued Past Yyazuxu-Vlqomc-Ytpjay Hx Patient Social History Marrital Status: Employed/Student: employed Tobacco Use?: No Smoking Status: Never a Smoker Smokeless type used: Chew Smokeless Tobacco Frequency: Former User (Used for 1.5 years, quit 20 years ago) Use of E-Cig and/or Vaping dev: No Substance use?: Yes Substance type: Marijuana Substance frequency: Once in a while Alcohol Use?: Yes Alcohol type: Hard Liquor Alcohol Frequency: Couple times a week Additional Alcohol Comments: CROWN Pt feels they are or have been: No Immunizations Up To Date First/Initial COVID19 Vaccinat: N/A Second COVID19 Vaccination Ra: N/A Tetanus Booster (TDap): Unknown PED Vaccines UTD: Yes Seasonal Allergies Seasonal Allergies: No Current Status Advance Directives: No Communicates: Verbally Primary Language: Afghan Preferred Spoken Language: Afghan Is interpretation needed?: No Past Medical History Surgeries: Orthopedic (Left knee and Right shoulder), Tonsillectomy Kidney Stones Gastroesophageal Reflux, Diverticulosis Arthritis Blood Disorders: No Family Medical History Asthma (Children), COPD (Mother), GI Disease (Crohn's disease in sister) Review of Systems Constitutional: No chills, No fever; malaise; No weakness EENTM: No blurred vision, No double vision Respiratory: No cough; dyspnea on exertion Cardiovascular: No chest pain, No palpitations Gastrointestinal: No abdominal pain, No constipation; diarrhea (d/t IBS); No nausea, No vomiting Genitourinary: No dysuria, No frequency Psychiatric/Neurological: Denies Headache; Numbness (Fingers, chronic issue), Tingling (Fingers, chronic issue) Physical Exam Vital Signs Vital Signs - First Documented 02/23/21 01:45 Temp 36.6 Pulse 107 Resp 18 B/P (MAP) 166/97 (120) Pulse Ox 98 O2 Delivery Room Air Capillary Refill : Height, Weight, BMI Height: 5'8.00" Weight: 220lbs. oz. 99.014995qw; 31.83 BMI Method:Stated General Appearance: No Apparent Distress, WD/WN HEENT: PERRL/EOMI; No Pale Conjunctivae (L), No Pale Conjunctivae (R), No Scleral Icterus (L), No Scleral Icterus (R) Neck: Normal Inspection, Non Tender; No Lymphadenopathy (L), No Lymphadenopathy (R) Respiratory: Chest Non Tender, Lungs Clear, Normal Breath Sounds, No Accessory Muscle Use, No Respiratory Distress Cardiovascular: Regular Rate, Rhythm, No Edema, No Murmur, Normal Peripheral Pulses Gastrointestinal: Normal Bowel Sounds, No Organomegaly, Non Tender, Soft Rectal: Tenderness (Tenderness upon inspecting gluteal cleft), Other (Thick, malodorous, sanguineous fluid at the base of the gluteal cleft from ruptured abscess) Extremity: Normal Capillary Refill, Non Tender, No Calf Tenderness, No Pedal Edema Neurologic/Psychiatric: Alert, Oriented x3, No Motor/Sensory Deficits, Normal Mood/Affect, geriatric personal care aide II-XII Norm as Tested Skin: Normal Color, Warm/Dry Lymphatic: No Adenopathy (Head and neck) Data Review Labs Laboratory Tests 02/23/21 02:10: Urine Color YELLOW, Urine Clarity CLEAR, Urine pH 6.5, Urine Specific Colbert 1.020, Urine Protein NEGATIVE, Urine Glucose (UA) NEGATIVE, Urine Ketones NEGATIVE, Urine Nitrite NEGATIVE, Urine Bilirubin NEGATIVE, Urine Urobilinogen 0.2, Urine Leukocyte Esterase NEGATIVE, Urine RBC (Auto) NEGATIVE, Urine RBC 0- 2, Urine WBC 0-2, Urine Crystals NONE, Urine Bacteria TRACE, Urine Casts NONE, Urine Mucus SMALLH, Urine Culture Indicated NO, Urine Opiates Screen POSITIVEH, Urine Oxycodone Screen NEGATIVE, Urine Methadone Screen NEGATIVE, Urine Propoxyphene Screen NEGATIVE, Urine Barbiturates Screen NEGATIVE, Ur Tricyclic Antidepressants Screen NEGATIVE, Urine Phencyclidine Screen NEGATIVE, Urine Amphetamines Screen NEGATIVE, Urine Methamphetamines Screen NEGATIVE, Urine Benzodiazepines Screen NEGATIVE, Urine Cocaine Screen NEGATIVE, Urine Cannabinoids Screen POSITIVEH 02/23/21 02:20: White Blood Count 16.0H, Red Blood Count 4.82, Hemoglobin 15.3, Hematocrit 43, Mean Corpuscular Volume 89, Mean Corpuscular Hemoglobin 32, Mean Corpuscular Hemoglobin Concent 36, Red Cell Distribution Width 11.9, Platelet Count 244, Mean Platelet Volume 9.9, Immature Granulocyte % (Auto) 0, Neutrophils (%) (Auto) 73, Lymphocytes (%) (Auto) 14, Monocytes (%) (Auto) 10, Eosinophils (%) (Auto) 3, Basophils (%) (Auto) 0, Neutrophils # (Auto) 11.6H, Lymphocytes # (Auto) 2.2, Monocytes # (Auto) 1.6H, Eosinophils # (Auto) 0.4H, Basophils # (Auto) 0.1, Immature Granulocyte # (Auto) 0.1, Neutrophils % (Manual) 74, Lymphocytes % (Manual) 14, Monocytes % (Manual) 8, Eosinophils % (Manual) 1, Band Neutrophils 3, Prothrombin Time 13.9, INR Comment 1.0, Activated Partial Thromboplast Time 41H, Sodium Level 133L, Potassium Level 4.0, Chloride Level 96L, Carbon Dioxide Level 25, Anion Gap 12, Blood Urea Nitrogen 15, Creatinine 1.29, Estimat Glomerular Filtration Rate 71, BUN/Creatinine Ratio 12, Glucose Level 108H, Lactic Acid Level 0.90, Calcium Level 9.5, Corrected Calcium , Total Bilirubin 0.5, Aspartate Amino Transf (AST/SGOT) 18, Alanine Aminotransferase (ALT/SGPT) 26, Alkaline Phosphatase 70, Total Protein 8.1, Albumin 4.6H 02/23/21 04:45: Influenza Type A (RT-PCR) Not Detected, Influenza Type B (RT-PCR) Not Detected, SARS-CoV-2 RNA (RT-PCR) Not Detected Assessment/Plan Assessment/Plan Admission [facility] Assessment: Perirectal abscess - WBC 16.0 - On vancomycin, metronidazole, and cefepime - CT with contrast obtained in ED. Report showed right paracentral perirectal abscess with fat stranding and inflammatory change. r/o Sepsis - Elevated WBC, HR, and RR h/o MRSA infection in elbow and sebacous cyst on left buttock h/o Nephrolithiasis IBS Plan: Continue IVF and antibiotics Send abscess fluid for culture Maintain NPO Pain control as needed Plan for surgery later today with wound debridement in OR Monitor for signs of bacteremia or clinical decompensation ESTEVAN BOSS DO 02/23/211953: History of Present Illness History of Present Illness Reason for visit/HPI Chief complaint perirectal abscess Patient is a 45-year-old male who states for almost a month that he has had problems with an area and right near his anus. He thought it is a hemorrhoid possibly. He tried some hydrocortisone cream and this did help the itchiness that he was occurring. About a week ago he started noticing more swelling and then 2 days ago the area increased to the size of a golf ball. Very extreme pain. He rates that it was about a 7 or 8 out of 10. Sitting on the area would make it worse. If he had to go to the bathroom this would also make it worse. Nothing really seem to make it better. Patient states that the pain radiated up to his back. Patient states that he did start having elevated drainage this morning from the area and this did help make it feel better. Still continued to have thick foul-smelling drainage. Patient states he has had a history of issue s with abscesses before. Having 1 on the left buttock and 1 on the elbow. Patient white count elevated. Patient is tachycardic. Patient had a CT scan consistent with right perirectal abscess. Allergies and Home Medications Allergies Coded Allergies: Penicillins (Verified Allergy, Unknown, 03/12/19) Patient Home Medication List Home Medication List Reviewed: Yes Celecoxib (Celecoxib) 200 Mg Capsule, 200 MG PO BID, (Reported) Entered as Reported by: MARIA DE JESUS DORADO on 02/23/21 1033 Last Action: Held Hydrocodone/Acetaminophen (Hydrocodone-Acetamin 10-325 mg) 1 Each Tablet, 1 EA PO Q4 -6H PRN for PAIN-MODERATE (5-7), (Reported) Entered as Reported by: MARIA DE JESUS DORADO on 02/23/21 1033 Last Action: Held Hydroxyzine HCl (Hydroxyzine HCl) 25 Mg Tablet, 25 MG PO DAILY PRN for ANXIETY, (Reported) Entered as Reported by: JULIO SÁNCHEZ on 10/26/201610 Last Action: Held Pantoprazole Sodium (Pantoprazole Sodium) 40 Mg Tablet.dr, 40 MG PO DAILY, (Reported) Entered as Reported by: JULIO SÁNCHEZ on 10/26/20 161 Last Action: Continued Promethazine HCl (Promethazine Tablet) 25 Mg Tablet, 25 MG PO Q6H PRN for NAUSEA/VOMITING-2ND LINE, (Reported) Entered as Reported by: JULIO SÁNCHEZ on 10/26/201610 Last Action: Held Tizanidine HCl (Tizanidine HCl) 4 Mg Tablet, 4-8 MG PO HS, (Reported) Entered as Reported by: JULIO SÁNCHEZ on 03/12/19 1009 Last Action: Held Zolpidem Tartrate (Ambien) 10 Mg Tablet, 10 MG PO HS PRN for SLEEP, (Reported) Entered as Reported by: MARIA DE JESUS DORADO on 02/23/21 1033 Last Action: Held Discontinued Medications Celecoxib (Celebrex) 200 Mg Capsule, 200 MG PO BID, (Reported) Discontinued Reason: Duplicate Order Entered as Reported by: JULIO SÁNCHEZ on 03/12/19 1009 Last Action: Discontinued Hydrocodone Bit/Acetaminophen (HYDROcodone/APAP 10/325 TABLET) 1 Each Tablet, 1 TAB PO Q6H PRN for PAIN-MODERATE (5-7), (Reported) Discontinued Reason: Duplicate Order Entered as Reported by: JULIO SÁNCHEZ on 03/12/19 1009 Last Action: Discontinued Temazepam (Temazepam) 15 Mg Capsule, 15 MG PO HS PRN for INSOMNIA, (Reported) Discontinued Reason: No Longer Taking Entered as Reported by: JULIO SÁNCHEZ on 10/26/20 1611 Last Action: Discontinued Past Mijqmse-Vsygzv-Nkdiba Hx Family Medical History No Pertinent Family Hx Review of Systems Constitutional: No chills, No fever; malaise; No weakness EENTM: No blurred vision, No double vision Respiratory: No cough, No short of breath Cardiovascular: No chest pain, No palpitations Gastrointestinal: No abdominal pain, No nausea, No vomiting Genitourinary: No dysuria, No frequency Musculoskeletal: No back pain, No joint pain Psychiatric/Neurological: Denies Headache; Numbness (Fingers, chronic issue), Tingling (Fingers, chronic issue) All Other Systems Reviewed Negative Unless Noted: Yes (Negative excepted noted.) Physical Exam General Appearance: No Apparent Distress, WD/WN HEENT: PERRL/EOMI, Normal ENT Inspection Neck: Normal Inspection, Non Tender Respiratory: Chest Non Tender, No Accessory Muscle Use, No Respiratory Distress Cardiovascular: No JVD, Tachycardia Gastrointestinal: Non Tender, Soft Rectal: Tenderness (Tenderness right buttock area, slight erythematous changes), Other (Purulent drainage from right perirectal region small pinhole opening, tender to palpation. Still with fluctuance) Back: Normal Inspection, No CVA Tenderness Extremity: Normal Capillary Refill, Non Tender, No Calf Tenderness Neurologic/Psychiatric: Alert, Oriented x3, No Motor/Sensory Deficits Skin: Normal Color (Except the perirectal region of erythema), Warm/Dry Lymphatic: No Adenopathy (Head and neck) Assessment/Plan Assessment/Plan Admission [facility] Perirectal abscess - WBC 16.0 - On vancomycin, metronidazole, and cefepime - CT with contrast obtained in ED. Report showed right paracentral perirectal a bscess with fat stranding and inflammatory change. Sepsis - Elevated WBC, HR, and RR h/o MRSA infection in elbow and sebacous cyst on left buttock h/o Nephrolithiasis IBS Plan: Continue IVF and antibiotics culture NPO currently Pain control as needed Has drainage from pinhole opening. We discussed incision and drainge to evacuate and to make easier to do wound care. Patient understands risk and benefits and wishes to proceed. Patient will need daily wound care and as needed keeping the area clean and dry. Procedure: Incision and drainage of perirectal abscess Patient in the prone position is prepped and draped in a sterile fashion timeout was performed. 4 mL of 1% lidocaine was used to anesthetize the area. An 11 blade scalpel was used to make an incision of approximately 1 inch. Purulent material erupted. Culture was obtained. All loculations broken up. Wound was then irrigated with saline. The wound was then packed with iodoform gauze. Sterile bandage was applied. Patient tolerated procedure well the complications.. Admission Status: Inpatient Order (span 2 midnights) Reason for Inpatient Admission: Patient needing procedure, IV abx, daily wound care and will need to arrange on outpatient basis. Assessment/Plan Perirectal abscess - WBC 16.0 - On vancomycin, metronidazole, and cefepime - CT with contrast obtained in ED. Report showed right paracentral perirectal abscess with fat stranding and inflammatory change. Sepsis - Elevated WBC, HR, and RR h/o MRSA infection in elbow and sebacous cyst on left buttock h/o Nephrolithiasis IBS Plan: Continue IVF and antibiotics culture NPO currently Pain control as needed Has drainage from pinhole opening. We discussed incision and drainge to evacuate and to make easier to do wound care. Patient understands risk and benefits and wishes to proceed. Patient will need daily wound care and as needed keeping the area clean and dry. Procedure: Incision and drainage of perirectal abscess Patient in the prone position is prepped and draped in a sterile fashion timeout was performed. 4 mL of 1% lidocaine was used to anesthetize the area. An 11 blade scalpel was used to make an incision of approximately 1 inch. Purulent material erupted. Culture was obtained. All loculations broken up. Wound was then irrigated with saline. The wound was then packed with iodoform gauze. Sterile bandage was applied. Patient tolerated procedure well the complications.. Supervisory-Addendum Brief Verification & Attestation Participated in pt care: history, MDM, physical Personally performed: exam, history, MDM, supervision of care Care discussed with: Medical Student Procedures: n/a Results interpretation: Verified all documentation Verification and Attestation of Medical Student E/M Service A medical student performed and documented this service in my presence. I reviewed and verified all information documented by the medical student and made modifications to such information, when appropriate. I personally performed the physical exam and medical decision making. Estevan Boss, Feb 23, 2021,20:03 LAUREN VUONG Feb 23, 2021 07:45 ESTEVAN BOSS DO Feb 23, 2021 19:54
[2021-02-23] MEDS: CEFEPIME 1,000 MG/NS 50 ML IVPB IV SCH ×6 (08:37→21:45)
[2021-02-23] MEDS: morphine INJ 4 MG/ML 1 ML (VIAL/SYRINGE) IV PRN ×5 (08:40→22:13)
[2021-02-23] MEDS ORDERED: ONDANSETRON 4 MG/2 ML (SDV) Z0FRAN ONE (09:03)
[2021-02-23] MEDS ORDERED: proPOfol 200 MG/20 ML (DIPRIVAN) VIAL IV ONE (09:03)
[2021-02-23] MEDS ORDERED: fentaNYL INJ 100 MCG/2 ML AMP ONE (09:03)
[2021-02-23] MEDS ORDERED: LIDOCAINE PF 2% 5 ML (XYLOCAINE) VIAL ONE (09:03)
[2021-02-23] MEDS ORDERED: LIDOCAINE/EPI 1%-1:200,000 (XYLOCAINE) 30 ML VIAL ONE (09:03)
[2021-02-23] MEDS ORDERED: MIDAZOLAM 2 MG/2 ML (VERSED) VIAL ONE (09:03)
[2021-02-23] MEDS: ONDANSETRON 4 MG/2 ML (SDV) Z0FRAN IVP PRN (09:49)
[2021-02-23] MEDS ORDERED: ZOLP10TA PO (10:33)
[2021-02-23] MEDS ORDERED: HYDR-3820 PO (10:33)
[2021-02-23] MEDS ORDERED: CELE-63 PO (10:33)
[2021-02-23] MEDS ORDERED: LIDOCAINE 1% INJ 20 ML VIAL ONE (11:37)
[2021-02-23 12:00] VITALS: BP 128/80
--- NOTE | 2021-02-23 13:13 | Consultation - Hospitalist ---
[facility] 02/23/21 1313: HPI History of Present Illness: HPI/Chief Complaint CC: Perirectal Abscess HPI: 45 year old male with a past medical history of IBS and recurrent abscess (left buttock, Left shoulder, left elbow) presented to the ED with Rectal pain and was diagnosed with a 1.9 x 2.4 cm perirectal abscess. Patient reports that he initially had pruritus in the same region 3-4 weeks ago which he treated with suppository cream. Stated that the pruritus resolved but he noticed a pea sized nodule. The nodule then progressed to the size of a golfball and was significantly tender especially with walking, sitting, or using the restroom. During his ED visit, patient reported that the abscess had ruptured producing thick, malodorous fluid. Source: patient Exam Limitations: no limitations Date Seen 02/23/21 Attending Physician Estevan Walter DO PCP Donnell Amanda MD Referring Physician Estevan Walter DO Date of Admission Feb 23, 2021 at 04:44 Home Medications & Allergies Home Medications Reviewed patient Home Medication Reconciliation performed by pharmacy medication reconciliations metal wire technician and/or nursing. Patients Allergies have been reviewed. Allergies Allergies Coded Allergies Penicillins (Verified Allergy, Unknown, 03/12/19) Past Rjygdtz-Ltpzyo-Yedqsw Hx Patient Social History Marrital Status: Employed/Student: employed Tobacco Use?: No Smoking Status: Never a Smoker Smokeless type used: Chew Smokeless Tobacco Frequency: Former User (Used for 1.5 years, quit 20 years ago) Use of E-Cig and/or Vaping dev: No Substance use?: No Substance type: Marijuana Substance frequency: Once in a while Alcohol Use?: Yes Alcohol type: Hard Liquor Alcohol Frequency: Once in a while Additional Alcohol Comments: CROWN Pt feels they are or have been: No Immunizations Up To Date First/Initial COVID19 Vaccinat: N/A Second COVID19 Vaccination Ra: N/A Tetanus Booster (TDap): Unknown PED Vaccines UTD: Yes Seasonal Allergies Seasonal Allergies: No Current Status Advance Directives: No Communicates: Verbally Primary Language: Gibraltarian Preferred Spoken Language: Gibraltarian Is interpretation needed?: No Past Medical History Surgeries: Orthopedic (Left knee and Right shoulder), Tonsillectomy Kidney Stones Gastroesophageal Reflux, Diverticulosis, Irritable Bowel Degenerate Disk Disease, Arthritis, Chronic Back Pain Anxiety Blood Disorders: No Family Medical History Asthma (Children), COPD (Mother), GI Disease (Crohn's disease in sister) Review of Systems Constitutional: No chills, No fever Respiratory: No cough, No dyspnea on exertion Cardiovascular: No chest pain, No palpitations Gastrointestinal: No abdominal pain; diarrhea (Due to IBS) Genitourinary: No dysuria, No hesitancy Musculoskeletal: No joint swelling; other (Joint erythema) Skin: No change in hair/nails; other (Abscess, right gluteal region) Psychiatric/Neurological: Anxiety; Denies Depressed Other History of recurrent abscess Physical Exam Physical Exam Vital Signs Vital Signs - First Documented 02/23/21 01:45 Temp 36.6 Pulse 107 Resp 18 B/P (MAP) 166/97 (120) Pulse Ox 98 O2 Delivery Room Air Capillary Refill : Height, Weight, BMI Height: 5'8.00" Weight: 220lbs. oz. 99.655289ks; 31.83 BMI Method:Stated General Appearance: No Apparent Distress, WD/WN HEENT: PERRL/EOMI; No Pale Conjunctivae (L), No Pale Conjunctivae (R), No Scl eral Icterus (L), No Scleral Icterus (R) Neck: Normal Inspection, Non Tender; No Lymphadenopathy (L), No Lymphadenopathy (R) Respiratory: Chest Non Tender, Lungs Clear, Normal Breath Sounds, No Accessory Muscle Use, No Respiratory Distress Cardiovascular: Regular Rate, Rhythm, No Edema, No Murmur, Normal Peripheral Pulses Gastrointestinal: Normal Bowel Sounds, No Organomegaly, Non Tender, Soft Rectal: Tenderness (Tenderness upon inspecting gluteal cleft), Other (Thick, malodorous, sanguineous fluid at the base of the gluteal cleft from ruptured abscess) Extremity: Normal Capillary Refill, Non Tender, No Calf Tenderness, No Pedal Edema Neurologic/Psychiatric: Alert, Oriented x3, No Motor/Sensory Deficits, Normal Mood/Affect, customer marketing intern II-XII Norm as Tested Skin: Normal Color, Warm/Dry Lymphatic: No Adenopathy (Head and neck) Results Results/Procedures Labs Laboratory Tests 02/23/21 02:20 Patient resulted labs reviewed. Assessment/Plan Assessment and Plan Assess & Plan/Chief Complaint Sepsis secondary to perirectal abscess history of abscess Diverticulosis IBS Family History of Crohns Surgery primary, Bedside debridement planned Continue IV abx Recommend possible colonoscopy w/biopsy at later date Consult heme/onc or infectious disease due to recurrent abscesses NIDIA BELLO DO 02/24/21 0527: HPI History of Present Illness: HPI/Chief Complaint Chief complaint: Perirectal abscess History of present illness: This is a 45-year-old white male known to me from prior hospital stays with a history of perirectal abscesses. Patient is very a ngry that he has not been able to eat. He provides no other details to me. Source: patient Exam Limitations: no limitations Past Adeuoas-Smglyg-Alnzmj Hx Patient Social History Marrital Status: cohabiting Smoking Status: Current Everyday Smoker Review of Systems Constitutional: see HPI Physical Exam Physical Exam General Appearance: No Apparent Distress, WD/WN Eyes: Bilateral Eye Normal Inspection, Bilateral Eye PERRL HEENT: PERRL/EOMI, Normal ENT Inspection, Pharynx Normal Neck: Full Range of Motion, Normal Inspection, Non Tender, Supple, Carotid Bruit Respiratory: Chest Non Tender, Lungs Clear, Normal Breath Sounds, No Accessory Muscle Use, No Respiratory Distress Cardiovascular: Regular Rate, Rhythm, No Edema, No Gallop, No JVD, No Murmur, Normal Peripheral Pulses Gastrointestinal: Normal Bowel Sounds, No Organomegaly, No Pulsatile Mass, Non Tender, Soft Back: Normal Inspection, No CVA Tenderness, No Vertebral Tenderness Extremity: Normal Capillary Refill, Normal Inspection, Normal Range of Motion, Non Tender, No Calf Tenderness, No Pedal Edema Neurologic/Psychiatric: Alert, Oriented x3, No Motor/Sensory Deficits, Normal Mood/Affect Skin: Normal Color, Warm/Dry Lymphatic: No Adenopathy Assessment/Plan Assessment and Plan Assess & Plan/Chief Complaint Assessment: Sepsis Perirectal abscess Family history of Crohn's Plan: Hep-Lock IV fluid Antibiotics Supervisory-Addendum Brief Verification & Attestation Participated in pt care: history, MDM, physical Personally performed: exam, history, MDM, supervision of care Care discussed with: Medical Student Procedures: n/a Results interpretation: Verified all documentation Verification and Attestation of Medical Student E/M Service A medical student performed and documented this service in my presence. I reviewed and verified all information documented by the medical student and made modifications to such information, when appropriate. I personally performed the physical exam and medical decision making. Nidia Bello, Feb 24, 2021,05:26 TATIANA MIRANDA MED STUD Feb 23, 2021 13:13 NIDIA BELLO DO Feb 24, 2021 05:27
[2021-02-23] MEDS: metroNIDAZOLE 500 MG/100 ML IVPB (PRE-MIX) IV SCH (14:39)
[2021-02-23 16:00] VITALS: BP 141/81
[2021-02-23] MEDS: VANCOMYCIN 1250 MG/NS 250 ML IVPB IV SCH ×2 (16:33)
[2021-02-23 20:00] VITALS: BP 110/67
[2021-02-23] MEDS ORDERED: PROMETHAZINE 25 MG (PHENERGAN) TAB PO PRN (20:45)
[2021-02-23] MEDS ORDERED: metroNIDAZOLE 500 MG (FLAGYL) TAB PO SCH (21:00)
[2021-02-23] MEDS: CELECOXIB 100 MG (CeleBREX) CAP PO SCH (22:13)
[2021-02-23] MEDS: ZOLPIDEM 5 MG (AMBIEN) TAB PO PRN (22:13)
[2021-02-23] MEDS ORDERED: hydrOXYzine (VISTARIL/ATARAX) 25 MG capsule/tablet PO PRN (22:15)
[2021-02-23 23:19] VITALS: BP 141/75
[2021-02-24] MEDS: metroNIDAZOLE 500 MG/100 ML IVPB (PRE-MIX) IV SCH ×2 (03:01→15:29)
[2021-02-24] MEDS: CEFEPIME 1,000 MG/NS 50 ML IVPB IV SCH ×8 (03:01→20:15)
[2021-02-24] MEDS: VANCOMYCIN 1250 MG/NS 250 ML IVPB IV SCH ×4 (04:00→16:45)
[2021-02-24 04:08] VITALS: BP 139/85
[2021-02-24] MEDS: morphine INJ 4 MG/ML 1 ML (VIAL/SYRINGE) IV PRN ×3 (04:27→22:01)
--- NOTE | 2021-02-24 05:58 | Progress Note - Hospitalist ---
Subjective HPI/CC On Admission Date Seen by Provider: Feb 24, 2021 Time Seen by Provider: 10:00 Chief complaint: Perirectal abscess History of present illness: This is a 45-year-old white male known to me from prior hospital stays with a history of perirectal abscesses. Patient is very angry that he has not been able to eat. He provides no other details to me. Subjective/Events-last exam Patient doing a lot better About to change the packing Wants to take Tylenol instead of hydrocodone Labs reviewed Review of Systems General: Fatigue, Malaise Focused Exam Lactate Level 02/23/21 02:20: Lactic Acid Level 0.90 Objective Exam Vital Signs Vital Signs Date Time Temp Pulse Resp B/P (MAP) Pulse Ox O2 Delivery O2 Flow Rate FiO2 02/25/21 03:23 36.3 70 18 123/57 (79) 96 Room Air Capillary Refill : General Appearance: No Apparent Distress, WD/WN, Chronically ill Respiratory: Lungs Clear Cardiovascular: Regular Rate, Rhythm Neurologic/Psychiatric: Alert, Oriented x3 Results/Procedures Lab Laboratory Tests 02/24/21 06:19 Patient resulted labs reviewed. Assessment/Plan Assessment and Plan Assess & Plan/Chief Complaint Assessment: Sepsis Perirectal abscess Family history of Crohn's Plan: Hep-Lock IV fluid Antibiotics 02/24/2021: IV antibiotics Change packing KIKA BELLO DO Feb 24, 2021 05:58
[2021-02-24 07:13] LABS: BASOPHILS # (AUTO) 0.1 10^3/uL (0.0-0.1); BASOPHILS % (AUTO) 1 % (0-10); EOSINOPHILS # (AUTO) 0.4 10^3/uL (0.0-0.3); EOSINOPHILS % (AUTO) 4 % (0-10); HEMATOCRIT 44 % (40-54); HEMOGLOBIN 15.4 g/dL (13.3-17.7); LYMPHOCYTES # (AUTO) 1.5 10^3/uL (1.0-4.0); LYMPHOCYTES % (AUTO) 14 % (12-44); MEAN CORPUSCULAR HEMOGLOBIN 32 pg (25-34); MEAN CORPUSCULAR HGB CONC 35 g/dL (32-36); MEAN CORPUSCULAR VOLUME 89 fL (80-99); MONOCYTES # (AUTO) 0.7 10^3/uL (0.0-1.0); MONOCYTES % (AUTO) 7 % (0-12); NEUTROPHILS # (AUTO) 7.9 10^3/uL (1.8-7.8); NEUTROPHILS % (AUTO) 74 % (42-75); PLATELET COUNT 219 10^3/uL (130-400); WHITE BLOOD COUNT 10.7 10^3/uL (4.3-11.0)
[2021-02-24 07:34] LABS: POTASSIUM 3.7 MMOL/L (3.6-5.0)
[2021-02-24 07:35] LABS: CALCIUM 9.1 MG/DL (8.5-10.1)
[2021-02-24 07:39] LABS: CREATININE SERUM 1.22 MG/DL (0.60-1.30)
[2021-02-24 08:00] VITALS: BP 146/96
[2021-02-24] MEDS: CELECOXIB 100 MG (CeleBREX) CAP PO SCH ×2 (08:19→20:15)
[2021-02-24] MEDS: PANTOPRAZOLE 40 MG (PROTONIX) TAB PO SCH (08:20)
--- NOTE | 2021-02-24 08:49 | Progress Note - Surgery ---
[facility] 02/24/21 0849: Subjective Date Seen by a Provider: Feb 24, 2021 Time Seen by a Provider: 07:45 Subjective/Events-last exam Pt is sleeping in bed this morning but is easily woken. He states that he had a bedside I&D yesterday and wasnt sure what all they got out of it. He knows that some of it was sent for culture and that is was packed. He states that this morning his pain is very much improved. He did have quite a bit of pain with some BM but other than that pain meds are working good. He is on IV abx. Eating and drinking with no nausea or vomiting. Urinating without difficulty. Is able to walk to restroom. Review of Systems General: No Chills, No Malaise HEENT: No Head Aches, No Visual Changes Pulmonary: No Dyspnea, No Cough Cardiovascular: No: Chest Pain, Palpitations, Edema Gastrointestinal: Other (Pain in rectal area); No: Nausea, Vomiting, Abdominal Pain, Diarrhea, Constipation, Melena Genitourinary: No Dysuria, No Incontinence, No Hematuria Musculoskeletal: No: leg pain, foot pain Focused Exam Lactate Level 02/23/21 02:20: Lactic Acid Level 0.90 Objective Exam Vital Signs Date Time Temp Pulse Resp B/P (MAP) Pulse Ox O2 Delivery O2 Flow Rate FiO2 02/24/21 08:00 37.0 86 20 146/96 (113) 96 Room Air 02/24/21 07:55 Room Air 02/24/21 04:08 36.7 85 20 139/85 (103) 96 Room Air 02/23/21 23:19 36.7 87 20 141/75 (97) 95 Room Air 02/23/21 20:55 Room Air 02/23/21 20:00 36.4 90 20 110/67 (81) 97 Room Air 02/23/21 16:00 37.0 96 22 141/81 (101) 96 Room Air 02/23/21 12:00 36.9 95 20 128/80 (96) 94 Room Air I & O 02/24/21 07:00 Intake Total 2000.0 ml Output Total 1075 ml Balance 925.0 ml Capillary Refill : General Appearance: No Apparent Distress, WD/WN HEENT: PERRL/EOMI, Pharynx Normal, Moist Mucous Membranes Respiratory: Chest Non Tender, Lungs Clear, Normal Breath Sounds, No Accessory Muscle Use, No Respiratory Distress Cardiovascular: Regular Rate, Rhythm, No Edema, No Murmur, Normal Peripheral Pulses Peripheral Pulses: 2+ Dorsalis Pedis (R), 2+ Left Dors-Pedis (L), 2+ Radial Pulses (R), 2+ Radial Pulses (L) Gastrointestinal: normal bowel sounds, non tender, soft Extremity: Normal Inspection, Non Tender, No Calf Tenderness, No Pedal Edema Neurologic/Psychiatric: Alert, Oriented x3, Normal Mood/Affect Skin: Normal Color, Warm/Dry, Other (Incision in R gluteal fold. It is mildy tender to touch but patient can tolerate manipulation of buttocks today. Is packed. Blood on the packing. No area of erythema noted, no leaking of fluid.) Results Lab Laboratory Tests 02/24/21 06:19: White Blood Count 10.7, Red Blood Count 4.89, Hemoglobin 15.4, Hematocrit 44, Mean Corpuscular Volume 89, Mean Corpuscular Hemoglobin 32, Mean Corpuscular Hemoglobin Concent 35, Red Cell Distribution Width 11.9, Platelet Count 219, Mean Platelet Volume 10.0, Immature Granulocyte % (Auto) 0, Neutrophils (%) (Auto) 74, Lymphocytes (%) (Auto) 14, Monocytes (%) (Auto) 7, Eosinophils (%) (Auto) 4, Basophils (%) (Auto) 1, Neutrophils # (Auto) 7.9H, Lymphocytes # (Auto) 1.5, Monocytes # (Auto) 0.7, Eosinophils # (Auto) 0.4H, Basophils # (Auto) 0.1, Immature Granulocyte # (Auto) 0.0, Sodium Level 132L, Potassium Level 3.7, Chloride Level 100, Carbon Dioxide Level 23, Anion Gap 9, Blood Urea Nitrogen 14, Creatinine 1.22, Estimat Glomerular Filtration Rate 75, BUN/Creatinine Ratio 11, Glucose Level 147H, Calcium Level 9.1 Assessment/Plan Assessment/Plan Assessment/Plan S/P bedside I&D of perirectal abscess Day 1 h/o MRSA infection in elbow and sebacous cyst on left buttock IBS Patient reports that his pain is much improved from yesterday and that the pain medication is working well. He is on Cefepime and Vancomycin. Awaiting results of culture. Should re-pack today, wound is healing. Pt can probably go home if he can be switched to oral abx, otherwise will ahve to finish a course here. He does have a history of IBS and his bowel movements can be a little unpredictable for him. He does have quite a bit of pain with bowel movements. Does have hydrocodone ordered though. WBC down to 10 today from 16. Will continue to watch vitals and labs for signs of worsening infection. BRAD TABARES DO 02/24/21 1247: Subjective Time Seen by a Provider: 10:56 Subjective/Events-last exam Pt seen and examined, he had just finished shower. States he is doing better and pain is controlled. He was concerned that every time he had BM...while wiping would accidentally pull the packing out. Review of Systems General: No Chills Pulmonary: No Dyspnea, No Cough Cardiovascular: No: Chest Pain, Palpitations Gastrointestinal: Other (Pain in rectal area); No: Nausea, Vomiting, Abdominal Pain Objective Exam General Appearance: No Apparent Distress, WD/WN Respiratory: Lungs Clear, Normal Breath Sounds, No Accessory Muscle Use, No Respiratory Distress Cardiovascular: Regular Rate, Rhythm, No Murmur Gastrointestinal: non tender, soft Skin: Other (Incision in R gluteal fold. It is mildy tender to touch but patient can tolerate manipulation of buttocks today. Is packed. Blood on the packing. No area of erythema noted, no leaking of fluid.) Assessment/Plan Assessment/Plan Assessment/Plan S/P bedside I&D of perirectal abscess Day 1 h/o MRSA infection in elbow and sebacous cyst on left buttock IBS Patient reports that his pain is much improved from yesterday and that the pain medication is working well. He is on Cefepime and Vancomycin. Awaiting results of culture. Should re-pack today, wound is healing. Pt wants to go home if he can be switched to oral abx; however, we are waiting on culture results to make sure he is being treated correctly. WBC down to 10 today from 16. Will continue to watch vitals and labs for signs of worsening infection. Supervisory-Addendum Brief Verification & Attestation Participated in pt care: history, MDM, physical Personally performed: exam, history, MDM, supervision of care Care discussed with: Medical Student Procedures: n/a Verification and Attestation of Medical Student E/M Service A medical student performed and documented this service. I then reviewed and verified all information documented by the medical student and made modifications to such information, when appropriate. I personally performed a physical exam, medical decision making and then discussed any differences between the notes and made revisions as necessary to create one note. Brad Tabares , 02/24/21 , 12:47 [facility] STUDENT Feb 24, 2021 08:49 BRAD TABARES DO Feb 24, 2021 12:47
[2021-02-24] MEDS: ONDANSETRON 4 MG/2 ML (SDV) Z0FRAN IVP PRN (10:38)
[2021-02-24 11:54] VITALS: BP 141/74
[2021-02-24] MEDS ORDERED: TROUGH ORDER-PHARMACY XX ONE (14:30)
[2021-02-24] MEDS ORDERED: DOCUSATE SODIUM 100 MG (COLACE) CAP PO PRN (15:15)
[2021-02-24] MEDS ORDERED: diphenhydrAMINE 25 MG TAB (BENADRYL) PO PRN (15:15)
[2021-02-24] MEDS ORDERED: MELATONIN 3 MG TABLET PO PRN (15:15)
[2021-02-24] MEDS ORDERED: CALCIUM CARBONATE 500 MG (TUMS) TAB.CHEW PO PRN (15:15)
[2021-02-24] MEDS ORDERED: LOPERAMIDE 2 MG (IMODIUM) TABLET PO PRN (15:15)
[2021-02-24] MEDS ORDERED: ACETAMINOPHEN 325 MG TABLET PO PRN (15:15)
[2021-02-24 15:31] VITALS: BP 127/72
[2021-02-24 19:12] VITALS: BP 147/73
[2021-02-24] MEDS: ZOLPIDEM 5 MG (AMBIEN) TAB PO PRN (20:15)
[2021-02-25 00:02] VITALS: BP 148/56
[2021-02-25] MEDS: CEFEPIME 1,000 MG/NS 50 ML IVPB IV SCH ×4 (02:33→08:07)
[2021-02-25] MEDS: metroNIDAZOLE 500 MG/100 ML IVPB (PRE-MIX) IV SCH (02:33)
[2021-02-25] MEDS: VANCOMYCIN 1250 MG/NS 250 ML IVPB IV SCH ×2 (03:21)
[2021-02-25 03:23] VITALS: BP 123/57
[2021-02-25 05:50] LABS: BASOPHILS # (AUTO) 0.1 10^3/uL (0.0-0.1); BASOPHILS % (AUTO) 1 % (0-10); EOSINOPHILS # (AUTO) 0.5 10^3/uL (0.0-0.3); EOSINOPHILS % (AUTO) 5 % (0-10); HEMATOCRIT 47 % (40-54); HEMOGLOBIN 16.6 g/dL (13.3-17.7); LYMPHOCYTES # (AUTO) 1.3 10^3/uL (1.0-4.0); LYMPHOCYTES % (AUTO) 13 % (12-44); MEAN CORPUSCULAR HEMOGLOBIN 31 pg (25-34); MEAN CORPUSCULAR HGB CONC 36 g/dL (32-36); MEAN CORPUSCULAR VOLUME 88 fL (80-99); MEAN PLATELET VOLUME 9.4 fL (9.0-12.2); MONOCYTES # (AUTO) 0.9 10^3/uL (0.0-1.0); MONOCYTES % (AUTO) 9 % (0-12); NEUTROPHILS # (AUTO) 7.6 10^3/uL (1.8-7.8); NEUTROPHILS % (AUTO) 73 % (42-75); PLATELET COUNT 261 10^3/uL (130-400); WHITE BLOOD COUNT 10.4 10^3/uL (4.3-11.0)
[2021-02-25 06:03] LABS: ALBUMIN 4.2 GM/DL (3.2-4.5); POTASSIUM 4.1 MMOL/L (3.6-5.0)
[2021-02-25 06:05] LABS: CALCIUM 9.2 MG/DL (8.5-10.1)
[2021-02-25 06:06] LABS: TOTAL PROTEIN 7.7 GM/DL (6.4-8.2)
[2021-02-25 06:08] LABS: BILIRUBIN,TOTAL 0.8 MG/DL (0.1-1.0)
[2021-02-25 06:10] LABS: CREATININE SERUM 1.2 MG/DL (0.60-1.30)
--- NOTE | 2021-02-25 06:16 | Progress Note - Hospitalist ---
Subjective HPI/CC On Admission Date Seen by Provider: Feb 25, 2021 Time Seen by Provider: 10:00 Chief complaint: Perirectal abscess History of present illness: This is a 45-year-old white male known to me from prior hospital stays with a history of perirectal abscesses. Patient is very angry that he has not been able to eat. He provides no other details to me. Subjective/Events-last exam Patient doing well Labs good Microbiology reviewed Likely discharge today per surgery Review of Systems General: Fatigue, Malaise Focused Exam Lactate Level Objective Exam Vital Signs Vital Signs Date Time Temp Pulse Resp B/P (MAP) Pulse Ox O2 Delivery O2 Flow Rate FiO2 02/25/21 16:15 36.8 88 16 130/76 98 Room Air Capillary Refill : General Appearance: No Apparent Distress, WD/WN, Chronically ill Respiratory: Lungs Clear, Normal Breath Sounds Cardiovascular: Regular Rate, Rhythm Neurologic/Psychiatric: Alert, Oriented x3 Results/Procedures Lab Laboratory Tests 02/25/21 05:31 02/25/21 05:42 Patient resulted labs reviewed. Assessment/Plan Assessment and Plan Assess & Plan/Chief Complaint Assessment: Sepsis Perirectal abscess Family history of Crohn's Plan: Hep-Lock IV fluid Antibiotics 02/24/2021: IV antibiotics Change packing 02/25/2021: Discharge planned KIKA BELLO DO Feb 25, 2021 06:16
[2021-02-25 07:37] VITALS: BP 130/76
[2021-02-25] MEDS: CELECOXIB 100 MG (CeleBREX) CAP PO SCH (08:07)
[2021-02-25] MEDS: PANTOPRAZOLE 40 MG (PROTONIX) TAB PO SCH (08:07)
--- NOTE | 2021-02-25 08:25 | Progress Note - Surgery ---
[facility]UD[facility] 02/25/21 0825: Subjective Date Seen by a Provider: Feb 25, 2021 Time Seen by a Provider: 08:00 Subjective/Events-last exam Mr. Renteria is awake and laying in bed this morning. Says his pain is a lot better. Really only acts up with packing and bowel movements. He is eating and drinking without nausea and vomiting. He says he is intentionally eating less due to his IBS causing bowel movements which he is trying not to have. He is not having bowel or bladder problems today. Is able to walk around the room with no problems. Is on ABX. Cultures are resulted and appears there was no growth. I did not look at wound today but nursing states it has been looking good and pt reports less pain. Review of Systems General: No Chills HEENT: No Head Aches, No Visual Changes Pulmonary: No Dyspnea, No Cough Cardiovascular: No: Chest Pain, Palpitations, Edema Gastrointestinal: Other (Pain in rectal area); No: Nausea, Vomiting, Abdominal Pain, Diarrhea, Constipation, Melena Genitourinary: No Dysuria, No Incontinence, No Hematuria Musculoskeletal: No: leg pain, foot pain Focused Exam Lactate Level 02/23/21 02:20: Lactic Acid Level 0.90 Objective Exam Vital Signs Date Time Temp Pulse Resp B/P (MAP) Pulse Ox O2 Delivery O2 Flow Rate FiO2 02/25/21 07:37 36.8 88 16 130/76 (94) 98 Room Air 02/25/21 07:34 Room Air 02/25/21 03:23 36.3 70 18 123/57 (79) 96 Room Air 02/25/21 00:02 36.9 75 18 148/56 (86) 97 Room Air 02/24/21 20:25 Room Air 02/24/21 19:12 37.0 89 18 147/73 (97) 97 Room Air 02/24/21 15:31 36.7 85 18 127/72 (90) 96 Room Air 02/24/21 11:54 37.1 88 20 141/74 (96) 96 Room Air I & O 02/25/21 07:00 Intake Total 1892.5 ml Output Total 675 ml Balance 1217.5 ml Capillary Refill : General Appearance: No Apparent Distress, WD/WN HEENT: PERRL/EOMI, Pharynx Normal, Moist Mucous Membranes Respiratory: Chest Non Tender, Lungs Clear, Normal Breath Sounds, No Accessory Muscle Use, No Respiratory Distress Cardiovascular: Regular Rate, Rhythm, No Edema, No Murmur, Normal Peripheral Pulses Peripheral Pulses: 2+ Dorsalis Pedis (R), 2+ Left Dors-Pedis (L), 2+ Radial Pulses (R), 2+ Radial Pulses (L) Gastrointestinal: normal bowel sounds, non tender, soft Extremity: Normal Inspection, Non Tender, No Calf Tenderness, No Pedal Edema Neurologic/Psychiatric: Alert, Oriented x3 Skin: Normal Color, Warm/Dry, Other (Incision in gluteal folds is packed, was not visualized this morning but nursing reports it is healing nicely, no erythema ) Results Lab Laboratory Tests 02/24/21 15:42: Vancomycin Level Trough 11.3 02/25/21 05:31: Sodium Level 135, Potassium Level 4.1, Chloride Level 102, Carbon Dioxide Level 22, Anion Gap 11, Blood Urea Nitrogen 15, Creatinine 1.20, Estimat Glomerular Filtration Rate 77, BUN/Creatinine Ratio 13, Glucose Level 99, Calcium Level 9.2, Corrected Calcium 9.0, Total Bilirubin 0.8, Aspartate Amino Transf (AST/SGOT) 34, Alanine Aminotransferase (ALT/SGPT) 43, Alkaline Phosphatase 68, Total Protein 7.7, Albumin 4.2 02/25/21 05:42: White Blood Count 10.4, Red Blood Count 5.29, Hemoglobin 16.6, Hematocrit 47, Mean Corpuscular Volume 88, Mean Corpuscular Hemoglobin 31, Mean Corpuscular Hemoglobin Concent 36, Red Cell Distribution Width 11.8, Platelet Count 261, Mean Platelet Volume 9.4, Immature Granulocyte % (Auto) 0, Neutrophils (%) (Auto) 73, Lymphocytes (%) (Auto) 13, Monocytes (%) (Auto) 9, Eosinophils (%) (Auto) 5, Basophils (%) (Auto) 1, Neutrophils # (Auto) 7.6, Lymphocytes # (Auto) 1.3, Monocytes # (Auto) 0.9, Eosinophils # (Auto) 0.5H, Basophils # (Auto) 0.1, Immature Granulocyte # (Auto) 0.0 Microbiology 02/23/21 Gram Stain - Final, Resulted 02/23/21 Wound Culture - Preliminary, Resulted No growth 02/23/21 Blood Culture - Preliminary, Resulted No growth 02/23/21 Urine Culture - Final, Complete NO GROWTH Assessment/Plan Assessment/Plan Assessment/Plan S/P bedside I&D of perirectal abscess Day 2 h/o MRSA infection in elbow and sebacous cyst on left buttock IBS Culture results back and showed no bacterial growth, if not MRSA then pt should be able to go home with just some oral abx. His pain is well controlled, has been packing as necessary. WBC remains at 10, do not suspect sepsis or worsening infection. BRAD TABARES DO 02/25/21 1503: Subjective Time Seen by a Provider: 13:11 Subjective/Events-last exam Pt seen and examined, states he is doing great with very little pain. Review of Systems General: No Chills Pulmonary: No Dyspnea, No Cough Cardiovascular: No: Chest Pain, Palpitations Gastrointestinal: Other (Pain in rectal area); No: Nausea, Vomiting, Abdominal Pain Objective Exam General Appearance: No Apparent Distress, WD/WN Respiratory: Lungs Clear, Normal Breath Sounds, No Accessory Muscle Use, No Respiratory Distress Cardiovascular: Regular Rate, Rhythm, No Murmur Gastrointestinal: non tender, soft Skin: Other (Incision in gluteal folds is packed, was not visualized this morni ng but nursing reports it is healing nicely, no erythema ) Assessment/Plan Assessment/Plan Assessment/Plan S/P bedside I&D of perirectal abscess Day 2 h/o MRSA infection in elbow and sebacous cyst on left buttock IBS Culture results back and showed most likely MRSA; will send pt home with Bactrim DS. Change packing daily. Supervisory-Addendum Brief Verification & Attestation Participated in pt care: history, MDM, physical Personally performed: exam, history, MDM, supervision of care Care discussed with: Medical Student Procedures: n/a Verification and Attestation of Medical Student E/M Service A medical student performed and documented this service. I then reviewed and verified all information documented by the medical student and made modifications to such information, when appropriate. I personally performed a physical exam, medical decision making and then discussed any differences between the notes and made revisions as necessary to create one note. Brad Tabares , 02/25/21 , 15:03 AR[facility]ELIS D[facility] MED STUDENT Feb 25, 2021 08:25 BRAD TABARES DO Feb 25, 2021 15:03
[2021-02-25] MEDS ORDERED: SULF1TAB38 PO (14:23)
--- NOTE | 2021-02-25 14:25 | Discharge Inst-Surgical ---
Discharge Inst-Surgical Depart Medication/Instructions New, Converted or Re-Newed RX: Transmitted to Pharmacy Patient Instructions Follow up Appt: Make appointment for Friday. [phone] Instructions: No lifting greater than 20 pounds. No strenuous activity. May shower in 24 hours, no tub bath or soaking. Use incentive spirometer at home as directed. No Smoking Skin/Wound Care: Continue packing daily. Symptoms to Report: Appetite Changes, Extremity Discoloration, Numbness/Tingling, Swelling Increased, Bleeding Excessive, Eyesight Changes, Pain Increased, Urine Color Change, Constipation(Persistent), Fever over 101 degree F, Pain/Pressure in chest, Urinating Difficulty, Cough Up/Vomit Blood, Heart Beat Irreg/Pounding, Pain/Pressure in jaw, Cramps in feet or legs, Lightheadedness, Pain/Pressure in shoulder, Diarrhea(Persistent), Memory Changes Suddenly, Questions/Concerns, Weight gain consecutive days, Dizziness/Fainting, Nausea/Vomiting, Shortness of Breath, Weight gain over 2 pounds If questions or concerns contact your physician Or seek help at emergency department. Activity Activity as Tolerated: Yes Driving Instructions: You May Drive Diet Discharge Diet: No Restrictions Diet After 24 Hours: Clear Liquid if Nauseous If Any Problems/Questions/Issu: Contact Your Physician, Go to Emergency Room Skin/Wound Care Infection Signs and Symptoms: Increased Redness, Foul Odor of Wound, Increased Drainage, Skin Itchy or Has a Rash, Increased Swelling, Temperature Above 101 F Bathing Instructions: Shower Operative Area Clean and Dry: Keep Incision Clean/Dry MOHSEN BRIGGS DO Feb 25, 2021 14:25
[2021-02-25 16:15] VITALS: BP 130/76
== END 2021-02-25 14:35 | disposition home or self-care (01) | DRG 854 ==
LOC: EDUNIT# 01:18 → ER 01:22 → 4TH 04:44 → EDLOC 04:44
PROVIDERS: ADMIT Surgery; ATTEND Surgery
PROC: 0D9P0ZZ Drainage of Rectum, Open Approach (ICD-10-PCS; principal; 2021-02-23)
DX: A41.02 Sepsis due to Methicillin resistant Staphylococcus aureus (principal); K61.1 Rectal abscess; K58.0 Irritable bowel syndrome with diarrhea; K57.90 Diverticulosis of intestine, part unspecified, without perforation or abscess without bleeding; K21.9 Gastro-esophageal reflux disease without esophagitis; M19.91 Primary osteoarthritis, unspecified site; F41.9 Anxiety disorder, unspecified; Z87.891 Personal history of nicotine dependence; Z20.822 Contact with and (suspected) exposure to COVID-19; Z88.0 Allergy status to penicillin
CPT/HCPCS: 36415; 72193; 80048; 80053; 80202; 80306; 81000; 83605; 85007; 85025; 85027; 85610; 85730; 87040; 87070; 87075; 87077; 87088; 87186; 87205; 87636

== ENCOUNTER 2022-05-23 13:07 | Emergency (ER) | payer BC ==
[~2022-05-23] VITALS: Ht 172 cm; Wt 97.0 kg
[~2022-05-23 13:07] MED LIST changes: +CELE-63 PO; +HYDR-3820 PO; +SULF1TAB38 PO; +ZOLP10TA PO
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
[2022-05-23] MEDS ORDERED: VANCOMYCIN INJECTION 1,000 MG in NS (IVPB) 250 ML IV ONE (13:45)
[2022-05-23] MEDS ORDERED: NS IV 1000 ML 1,000 ML IV SCH (13:45)
[2022-05-23] MEDS ORDERED: CEFEPIME INJECTION 1,000 MG in NS (IVPB) 50 ML IV ONE (13:45)
[2022-05-23 13:59] LABS: BASOPHILS % (AUTO) 0 % (0-10); EOSINOPHILS # (AUTO) 0.4 10^3/uL (0.0-0.3); EOSINOPHILS % (AUTO) 4 % (0-10); HEMATOCRIT 39 % (40-54); HEMOGLOBIN 13.7 g/dL (13.3-17.7); LYMPHOCYTES # (AUTO) 1.6 10^3/uL (1.0-4.0); LYMPHOCYTES % (AUTO) 14 % (12-44); MEAN CORPUSCULAR HEMOGLOBIN 31 pg (25-34); MEAN CORPUSCULAR HGB CONC 35 g/dL (32-36); MEAN CORPUSCULAR VOLUME 88 fL (80-99); MEAN PLATELET VOLUME 9.5 fL (9.0-12.2); MONOCYTES # (AUTO) 0.9 10^3/uL (0.0-1.0); MONOCYTES % (AUTO) 8 % (0-12); NEUTROPHILS # (AUTO) 8.5 10^3/uL (1.8-7.8); NEUTROPHILS % (AUTO) 74 % (42-75); PLATELET COUNT 221 10^3/uL (130-400); WHITE BLOOD COUNT 11.5 10^3/uL (4.3-11.0)
[2022-05-23] MEDS ORDERED: NS 100 ML (IVPB) BAG IV ONE (14:00)
[2022-05-23] MEDS ORDERED: IOHEXOL 350 MG/ML 100 ML (OMNIPAQUE 350) VIAL IV ONE (14:00)
[2022-05-23] MEDS ORDERED: HOLD METFORMIN - RECEIVED CONTRAST 20 ML VIAL IV SCH (14:00)
[2022-05-23 14:07] LABS: ALBUMIN 4.2 GM/DL (3.2-4.5); POTASSIUM 4.1 MMOL/L (3.6-5.0)
[2022-05-23 14:08] LABS: CALCIUM 9.5 MG/DL (8.5-10.1)
[2022-05-23 14:09] LABS: TOTAL PROTEIN 7.1 GM/DL (6.4-8.2)
[2022-05-23 14:11] LABS: BILIRUBIN,TOTAL 0.4 MG/DL (0.1-1.0); PROTHROMBIN TIME PATIENT 13.9 SEC (12.2-14.7)
[2022-05-23 14:13] LABS: CREATININE SERUM 1.38 MG/DL (0.60-1.30)
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
[2022-05-23] MEDS ORDERED: fentaNYL INJ 100 MCG/2 ML AMP IVP STA ×2 (16:59→18:35)
[2022-05-23] MEDS ORDERED: diphenhydrAMINE 50 MG/ML INJ (BENADRYL) IVP ONE (17:30)
[2022-05-23 18:46] VITALS: BP 141/102
== END 2022-05-23 18:53 | disposition home or self-care (01) ==
LOC: EDUNIT# 13:07 → ER 13:09
DX: L02.416 Cutaneous abscess of left lower limb (principal); M25.562 Pain in left knee; Z79.891 Long term (current) use of opiate analgesic; Z79.899 Other long term (current) drug therapy; Z87.828 Personal history of other (healed) physical injury and trauma; Z88.1 Allergy status to other antibiotic agents
CPT/HCPCS: 36415; 73701; 80053; 83605; 85025; 85610; 85730; 87040; 87070; 87077; 87186; 87205

== ENCOUNTER 2022-12-19 11:24 | Emergency (ER) | payer BC ==
[~2022-12-19] VITALS: Ht 170 cm; Wt 90.7 kg
[~2022-12-19 11:24] MED LIST changes: -CELE-63 PO; +CELE-91 PO
[2022-12-19 11:51] LABS: BASOPHILS % (AUTO) 0 % (0-10); EOSINOPHILS # (AUTO) 0.1 10^3/uL (0.0-0.3); EOSINOPHILS % (AUTO) 1 % (0-10); HEMATOCRIT 46 % (40-54); HEMOGLOBIN 16.1 g/dL (13.3-17.7); LYMPHOCYTES # (AUTO) 1.6 10^3/uL (1.0-4.0); LYMPHOCYTES % (AUTO) 11 % (12-44); MEAN CORPUSCULAR HEMOGLOBIN 31 pg (25-34); MEAN CORPUSCULAR HGB CONC 35 g/dL (32-36); MEAN CORPUSCULAR VOLUME 88 fL (80-99); MEAN PLATELET VOLUME 8.9 fL (9.0-12.2); MONOCYTES # (AUTO) 0.5 10^3/uL (0.0-1.0); MONOCYTES % (AUTO) 3 % (0-12); NEUTROPHILS # (AUTO) 12.8 10^3/uL (1.8-7.8); NEUTROPHILS % (AUTO) 85 % (42-75); PLATELET COUNT 385 10^3/uL (130-400); WHITE BLOOD COUNT 15.1 10^3/uL (4.3-11.0)
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
[2022-12-19 11:54] LABS: ALBUMIN 4.9 GM/DL (3.2-4.5); CHLORIDE 102 MMOL/L (98-107); POTASSIUM 3.8 MMOL/L (3.6-5.0); SODIUM 136 MMOL/L (135-145)
[2022-12-19 11:55] LABS: CALCIUM 9.5 MG/DL (8.5-10.1)
[2022-12-19 11:57] LABS: GLUCOSE 113 MG/DL (70-105); TOTAL PROTEIN 8.2 GM/DL (6.4-8.2)
[2022-12-19 11:58] LABS: CARBON DIOXIDE 26 MMOL/L (21-32)
[2022-12-19 11:59] LABS: BILIRUBIN,TOTAL 0.6 MG/DL (0.1-1.0)
[2022-12-19 12:00] LABS: ALKALINE PHOSPHATASE 62 U/L (40-136); CREATININE SERUM 1.76 MG/DL (0.60-1.30); GFR ESTIMATED 48
[2022-12-19] MEDS ORDERED: NS IV 1000 ML 1,000 ML IV SCH (12:00)
[2022-12-19] MEDS ORDERED: KETOROLAC INJ 15 MG/ML VIAL IVP ONE (12:00)
[2022-12-19] MEDS ORDERED: ONDANSETRON INJECTION 4 MG/2 ML (SDV) IVP ONE ×2 (12:00→13:45)
[2022-12-19 12:02] LABS: BUN/CREATININE RATIO 9
[2022-12-19 12:03] LABS: ALANINE AMINOTRANSFERASE 22 U/L (0-55)
[2022-12-19 12:04] LABS: LIPASE 28 U/L (8-78)
[2022-12-19] MEDS ORDERED: IOHEXOL 350 MG/ML 100 ML (OMNIPAQUE 350) VIAL IV ONE (12:15)
[2022-12-19] MEDS ORDERED: HOLD METFORMIN - RECEIVED CONTRAST 20 ML VIAL IV SCH (12:15)
[2022-12-19] MEDS ORDERED: NS 100 ML (IVPB) BAG IV ONE (12:15)
[2022-12-19] MEDS ORDERED: morphine INJ 10 MG/ML 1ML (SYR OR VIAL) IVP STA (12:16)
[2022-12-19 12:38] LABS: EOSINOPHILS % (MANUAL) 2 %; LYMPHOCYTES % (MANUAL) 12 %; MONOCYTES % (MANUAL) 8 %; NEUTROPHILS % (MANUAL) 78 %
[2022-12-19 12:39] LABS: RBC MORPH NORMAL
[2022-12-19 12:56] LABS: BACTERIA,URINE NEGATIVE /HPF; BILIRUBIN,URINE NEGATIVE (NEGATIVE); CLARITY,URINE CLEAR; COLOR,URINE YELLOW; GLUCOSE, URINE (UA) NEGATIVE (NEGATIVE); KETONES,URINE 2+ (NEGATIVE); LEUKOCYTE ESTERASE ,URINE NEGATIVE (NEGATIVE); NITRITE,URINE NEGATIVE (NEGATIVE); PH,URINE 5.5 (5-9); PROTEIN,URINE TRACE (NEGATIVE); RBC,URINE 0-2 /HPF; WBC,URINE 0-2 /HPF
--- NOTE | 2022-12-19 13:12 | Diagnostic Imaging Report ---
PROCEDURE: CT abdomen and pelvis without contrast. TECHNIQUE: Multiple contiguous axial images were obtained through the abdomen and pelvis without the use of intravenous contrast. Auto Exposure Controls were utilized during the CT exam to meet ALARA standards for radiation dose reduction. INDICATION: Right flank pain, hematuria. COMPARISON: Exam is compared with CT abdomen and pelvis 08/24/2018, and the patient had a more recent pelvic CT 02/23/2021. FINDINGS: A 3.2 mm calculus in the distal right ureter is just proximal to the UVJ and results in mild upstream right hydroureteronephrosis; however, there is substantial perinephric and periureteric stranding and infiltration of the retroperitoneal fat. No discrete drainable fluid collection. No intravesical bladder stone. The bladder wall is non-thickened. There are additional bilateral renal calculi present having increased in number and size from the CT of 2018 with the largest intrarenal stone on the right 4 mm and on the left 4 mm. On both sides, the stones number approximately 10. Liver, spleen, adrenals, pancreas, bile ducts, and gallbladder are unremarkable. The aorta is nonaneurysmal. There is no ileus or bowel obstruction. There is no appendicitis or diverticulitis. IMPRESSION: 3.2 mm distal right ureteral stone results in only mild upstream hydronephrosis; however, there is extensive perinephric and periureteric retroperitoneal stranding without discrete drainable fluid collection. Progressive bilateral nonobstructing intrarenal calculi are present. No other significant finding. Dictated by: Dictated on workstation # [id number]
[2022-12-19] MEDS ORDERED: cefTRIAXone IV/IM 1,000 MG in NS (IVPB) 50 ML 50 ML IV ONE (13:30)
[2022-12-19] MEDS ORDERED: fentaNYL INJECTION 100 MCG/2 ML VIAL IVP ONE (13:45)
[2022-12-19] MEDS ORDERED: HYDROcodone/ACETAMINOPHEN 7.5 MG/325 MG TABLET PO ONE (14:15)
[2022-12-19] MEDS ORDERED: CEFU500T63 PO (14:15)
[2022-12-19] MEDS ORDERED: ONDA4TAB11 SL (14:15)
[2022-12-19 14:34] VITALS: BP 130/84
== END 2022-12-19 14:26 | disposition home or self-care (01) ==
LOC: EDUNIT# 11:24 → ER 11:26
DX: N13.2 Hydronephrosis with renal and ureteral calculous obstruction (principal); D72.829 Elevated white blood cell count, unspecified; N18.9 Chronic kidney disease, unspecified; Z88.0 Allergy status to penicillin
CPT/HCPCS: 36415; 74176; 80053; 81000; 83690; 85007; 85027; 86141; 96361; 96365; 96375; 96376